=== PATIENT | female | born 1965 | race Hispanic/Latino ===

== ENCOUNTER 2017-05-11 01:14 | Emergency (ER) | payer MEDICAID, SELFPAY ==
[2017-05-11 02:54] LABS: #Basophils 0.1 thou/uL (0.0-0.2); #Eosinphils 0.1 thou/uL (0.0-0.7); #Monocytes 0.5 thou/uL (0.11-0.59); #Neutrophils 6.6 thou/uL (1.40-6.50); %Basophils 0.6 % (0.0-1.0); %Eosinophils 0.9 % (0.0-10.0); %Neutrophils 71.5 % (42.0-75.0); Hemoglobin 14.5 g/dL (12.0-16.0); Mean Corpuscular HGB CONC 34.7 g/dL (32.0-36.0); Mean Corpuscular Hemoglobin 29.3 pg (27.0-31.0); Mean Corpuscular Volume 84.5 fl (81.0-99.0); Mean Platelet Volume 6.9 fL (7.4-10.4); Platelet Count 245 thou/uL (130-400); RBC Distribution Width 11.7 % (11.5-14.5); Red Blood Cell (RBC) Count 4.94 mill/uL (4.20-5.40); White Blood Cell (WBC) Count 9.2 thou/uL (4.8-10.8)
[2017-05-11 03:01] LABS: Bilirubin Negative (Negative); Blood, Urine Trace (Negative); Clarity CLEAR (Clear); Glucose, Urine (Dipstick) >=1000 mg/dL (Negative); Leukocyte Negative (Negative); Nitrite Positive (Negative); Protein, Urine (Dipstick) 30 mg/dL (Neg-Trace); Specific Gravity, Urine 1.026 (1.002-1.036); Urobilinogen 0.2 mg/dL (0.2-1.0); pH, Urine 7.5 (5.0-9.0)
[2017-05-11] MEDS ORDERED: Acetaminophen 500 MG TAB ONE (03:08)
[2017-05-11 03:11] LABS: Amphetamine Not Detected (NotDetected); Barbiturates Screen Not Detected (NotDetected); Benzodiazepine Screen Not Detected (NotDetected); Cocaine Metabolite Screen Not Detected (NotDetected); Medtox Control Line Valid? VALID (VALID); Medtox Reader # READER 4; Methadone Not Detected (NotDetected); Methamphetamine Not Detected (NotDetected); Opiate Screen Not Detected (NotDetected); Oxycodone Screen Not Detected (NotDetected); Phencyclidine (PCP) Not Detected (NotDetected); RBC/HPF 0-3 HPF (0-3); THC/Cannabinoid Screen Not Detected (NotDetected); Tricyclic Screen Not Detected (NotDetected)
[2017-05-11] MEDS ORDERED: Ciprofloxacin 500 MG TAB ONE (03:11)
[2017-05-11 03:13] LABS: Renal Epithelial None Seen HPF (0-3); Squamous Epithelial 0-3 HPF (0-3); Transitional Epithelial NONE SEEN HPF (0-3); WBC/HPF 0-3 HPF (0-3)
[2017-05-11 03:14] LABS: CKMB 0.3 ng/mL (0-6.6); Troponin I Less than 0.010 ng/mL (< 0.028)
[2017-05-11 03:14] LABS: Bacteria/HPF None Seen HPF (None Seen); Crystals/HPF None Seen HPF (Negative); Hyaline Casts/LPF NONE SEEN LPF (0-3 Hyaline); Yeast-All Forms None Seen HPF (None Seen)
[2017-05-11 03:19] LABS: ALT (SGPT) 19 U/L (8-55); AST (SGOT) 10 U/L (5-34); Acetaminophen Less than 6.0 mcg/mL (10.0-30.0); Albumin 3.9 g/dL (3.5-5.0); Alcohol Less than 10 mg/dL (Less than 10); Alkaline Phosphatase 100 U/L (40-150); Anion Gap 13 mmol/L (10-20); BUN (Urea Nitrogen) 7 mg/dL (9.8-20.1); Bilirubin, Total 0.4 mg/dL (0.2-1.2); CK (CPK) 41 U/L (29-168); Calc. Creatinine Clearance 0 mL/min (70-130); Calcium 9.5 mg/dL (7.8-10.44); Carbon Dioxide 24 mmol/L (22-29); Chloride 101 mmol/L (98-107); Estimated GFR-MDRD 82; Globulin 3.5 g/dL (2.4-3.5); Glucose 422 mg/dL (70-105); Lipase 95 U/L (8-78); Potassium 3.5 mmol/L (3.5-5.1); Protein, Total 7.4 g/dL (6.0-8.3); Salicylate Less than 8.0 mg/dL (15.0-30.0); Sodium 134 mmol/L (136-145)
--- NOTE | 2017-05-11 07:35 | RAD ---
SINGLE VIEW OF THE CHEST: Comparison: 02-26-16 History: Altered mental status. FINDINGS: Single view of the chest shows a normal sized cardiomediastinal silhouette. There is a stable nodule projecting over the mid portion of the right thorax measuring 1.1 cm in size. There is no evidence of consolidation or pleural effusion. Surgical clips are seen at the cervicothoracic junction. IMPRESSION: Stable exam. POS: [facility]
--- NOTE | 2017-06-11 14:58 | EKG ---
Test Reason : ANXIETY Blood Pressure : / mmHG Vent. Rate : 081 BPM Atrial Rate : 081 BPM P-R Int : 152 ms QRS Dur : 070 ms QT Int : 378 ms P-R-T Axes : 056 -05 032 degrees QTc Int : 439 ms Normal sinus rhythm Septal infarct , age undetermined Abnormal ECG Confirmed by SEB GAMEZ, ORIANA ([id number]), graphic editor ARIEL SANCHEZ ([id number]) on 06/11/2017 2:57:27 PM Referred By: Confirmed By:ORIANA GRIGSBY MD
== END 2017-05-11 03:55 | disposition home or self-care (01) ==
LOC: ERS 01:14
DX: F41.9 Anxiety disorder, unspecified (principal); F32.9 Major depressive disorder, single episode, unspecified; N39.0 Urinary tract infection, site not specified; R74.8 Abnormal levels of other serum enzymes; I10 Essential (primary) hypertension; E11.9 Type 2 diabetes mellitus without complications
CPT/HCPCS: 36415; 36416; 71045; 80053; 80306; 80307; 81003; 81015; 82550; 82553; 83690; 83880; 84443; 84484; 85025; 93005

== ENCOUNTER 2018-03-20 15:52 | Emergency (ER) | payer MEDICAID, OTHER, SELFPAY ==
--- NOTE | 2018-03-20 17:46 | RAD ---
CHEST TWO VIEWS: History: Cough. Comparison: 05-11-17 FINDINGS: Well defined nodule right mid lung is similar. No pneumothorax. No effusion. Surgical clips along the right neck. There is gaseous distention of the stomach. IMPRESSION: No acute intrathoracic abnormality. POS: [facility]
== END 2018-03-20 18:00 | disposition home or self-care (01) ==
LOC: ERS 15:52
DX: J01.90 Acute sinusitis, unspecified (principal); E11.9 Type 2 diabetes mellitus without complications; Z79.4 Long term (current) use of insulin; Z79.899 Other long term (current) drug therapy
CPT/HCPCS: 71046; 87804

== ENCOUNTER 2018-03-24 23:55 | Emergency (ER) | payer OTHER ==
[2018-03-25] MEDS ORDERED: methylPREDNISolone Sod Succ/PF 125 MG/2 ML VIAL ONE (00:27)
[2018-03-25] MEDS ORDERED: Metoclopramide HCl 10 MG/2 ML VIAL ONE (00:27)
[2018-03-25] MEDS ORDERED: diphenhydrAMINE 50 MG/ML VIAL ONE (00:27)
[2018-03-25 00:34] LABS: #Basophils 0.1 thou/uL (0.0-0.2); #Eosinphils 0.1 thou/uL (0.0-0.7); #Lymphocytes 2.9 thou/uL (1.20-3.40); #Monocytes 0.4 thou/uL (0.11-0.59); #Neutrophils 3.3 thou/uL (1.40-6.50); %Basophils 1.1 % (0.0-1.0); %Eosinophils 1.7 % (0.0-10.0); %Lymphocytes 42.2 % (21.0-51.0); %Monocytes 6.2 % (0.0-10.0); %Neutrophils 48.8 % (42.0-75.0); Hemoglobin 13.8 g/dL (12.0-16.0); Mean Corpuscular HGB CONC 34.1 g/dL (32.0-36.0); Mean Corpuscular Volume 85.1 fL (78.0-98.0); Mean Platelet Volume 7.1 fL (7.4-10.4); Platelet Count 240 thou/uL (130-400); RBC Distribution Width 11.8 % (11.5-14.5); Red Blood Cell (RBC) Count 4.75 mill/uL (4.20-5.40); White Blood Cell (WBC) Count 6.8 thou/uL (4.8-10.8)
[2018-03-25 00:46] LABS: ALT (SGPT) 11 U/L (8-55); AST (SGOT) 10 U/L (5-34); Albumin 3.5 g/dL (3.5-5.0); Alkaline Phosphatase 98 U/L (40-150); Anion Gap 15 mmol/L (10-20); BUN (Urea Nitrogen) 8 mg/dL (9.8-20.1); Bilirubin, Total 0.3 mg/dL (0.2-1.2); Calc. Creatinine Clearance 0 mL/min (70-130); Calcium 9.3 mg/dL (7.8-10.44); Carbon Dioxide 22 mmol/L (22-29); Chloride 101 mmol/L (98-107); Estimated GFR-MDRD 81; Globulin 3.5 g/dL (2.4-3.5); Glucose 380 mg/dL (70-105); Potassium 3.8 mmol/L (3.5-5.1); Sodium 134 mmol/L (136-145)
--- NOTE | 2018-03-25 07:52 | RAD ---
PA AND LATERAL CHEST X-RAY: 03/25/2018 HISTORY: Cough. Difficulty breathing. COMPARISON: 03/20/2018 FINDINGS: The pulmonary nodule within the right lower lobe is again seen and is unchanged. This pulmonary nodu le is similar in size, compared to the prior exam, measuring approximately [address] thorax is available for comparison, and this would be better evaluated with CT examination. The lungs are otherwise clear. The cardiac silhouette and pulmonary vasculature are within normal limits. Surgica l clips again overly the upper mediastinum and lower right neck. No other interval change. IMPRESSION: 1. Right lower lobe pulmonary nodule, which is stable in size when compared to prior studies. 2. No acute cardiopulmonary process. POS: [facility]
== END 2018-03-25 01:34 | disposition home or self-care (01) ==
LOC: ERS 23:55
DX: J20.9 Acute bronchitis, unspecified (principal); E11.9 Type 2 diabetes mellitus without complications; F41.9 Anxiety disorder, unspecified; Z79.899 Other long term (current) drug therapy; Z79.4 Long term (current) use of insulin
CPT/HCPCS: 36415; 71046; 80053; 84484; 85025; 93005; 96365; 96375; J1200; J2765; J2930; J7620

== ENCOUNTER 2018-06-13 13:02 | Emergency (ER) | payer OTHER ==
[2018-06-13 13:51] LABS: #Basophils 0.1 thou/uL (0.0-0.2); #Eosinphils 0.1 thou/uL (0.0-0.7); #Lymphocytes 1.8 thou/uL (1.20-3.40); #Monocytes 0.4 thou/uL (0.11-0.59); #Neutrophils 5.5 thou/uL (1.40-6.50); %Basophils 0.8 % (0.0-1.0); %Eosinophils 0.8 % (0.0-10.0); %Lymphocytes 23.3 % (21.0-51.0); %Monocytes 5.1 % (0.0-10.0); Hemoglobin 14.1 g/dL (12.0-16.0); Mean Corpuscular HGB CONC 35.1 g/dL (32.0-36.0); Mean Corpuscular Hemoglobin 29.7 pg (27.0-31.0); Mean Corpuscular Volume 84.5 fL (78.0-98.0); Mean Platelet Volume 7.1 fL (7.4-10.4); Platelet Count 227 thou/uL (130-400); RBC Distribution Width 11.6 % (11.5-14.5); Red Blood Cell (RBC) Count 4.76 mill/uL (4.20-5.40); White Blood Cell (WBC) Count 7.8 thou/uL (4.8-10.8)
[2018-06-13 14:07] LABS: ALT (SGPT) 14 U/L (8-55); AST (SGOT) 12 U/L (5-34); Albumin 3.5 g/dL (3.5-5.0); Alkaline Phosphatase 94 U/L (40-150); Anion Gap 12 mmol/L (10-20); BUN (Urea Nitrogen) 11 mg/dL (9.8-20.1); Bilirubin, Total 0.3 mg/dL (0.2-1.2); Calc. Creatinine Clearance 0 mL/min (70-130); Calcium 9.2 mg/dL (7.8-10.44); Carbon Dioxide 26 mmol/L (22-29); Chloride 98 mmol/L (98-107); Estimated GFR-MDRD 86; Globulin 3.4 g/dL (2.4-3.5); Glucose 403 mg/dL (70-105); Potassium 4.2 mmol/L (3.5-5.1); Protein, Total 6.9 g/dL (6.0-8.3); Sodium 132 mmol/L (136-145)
--- NOTE | 2018-06-14 07:32 | RAD ---
Right foot 3 views: 06/13/2018 COMPARISON: None HISTORY: Joint pain, right great toe discoloration FINDINGS: No fracture or dislocation. No radiopaque foreign body or subcutaneous gas. Vascular calcif ication is seen in the midfoot. Mild enthesophyte formation noted at the origin of the plantar aponeurosis. IMPRESSION: No acute findings.
== END 2018-06-13 15:00 | disposition home or self-care (01) ==
LOC: ERS 13:02
DX: L03.031 Cellulitis of right toe (principal); L60.0 Ingrowing nail; E11.65 Type 2 diabetes mellitus with hyperglycemia; F41.9 Anxiety disorder, unspecified; F32.9 Major depressive disorder, single episode, unspecified; Z79.4 Long term (current) use of insulin; Z79.899 Other long term (current) drug therapy
CPT/HCPCS: 36415; 80053; 83605; 85025

== ENCOUNTER 2018-06-15 23:18 | Emergency (ER) | payer OTHER ==
--- NOTE | 2018-06-15 23:56 | RAD ---
XR Chest 1 View Portable History: [Chest pain] Comparison: Chest radiograph May 11, 2017 Findings: The lungs are clear. No pneumothorax or effusion. Cardiac silhouette and mediastinal contou rs are within normal limits. Thoracic inlet surgical clips are present. Impression: No acute intrathoracic abnormality.
[2018-06-16 00:05] LABS: #Basophils 0.1 thou/uL (0.0-0.2); #Eosinphils 0.1 thou/uL (0.0-0.7); #Lymphocytes 2.2 thou/uL (1.20-3.40); #Monocytes 0.6 thou/uL (0.11-0.59); #Neutrophils 4.9 thou/uL (1.40-6.50); %Basophils 0.7 % (0.0-1.0); %Eosinophils 1.2 % (0.0-10.0); %Lymphocytes 27.8 % (21.0-51.0); %Monocytes 7.7 % (0.0-10.0); %Neutrophils 62.7 % (42.0-75.0); Hemoglobin 14.2 g/dL (12.0-16.0); Mean Corpuscular HGB CONC 33.2 g/dL (32.0-36.0); Mean Corpuscular Volume 87.2 fL (78.0-98.0); Mean Platelet Volume 7.5 fL (7.4-10.4); Platelet Count 260 thou/uL (130-400); Red Blood Cell (RBC) Count 4.92 mill/uL (4.20-5.40); White Blood Cell (WBC) Count 7.8 thou/uL (4.8-10.8)
[2018-06-16] MEDS ORDERED: Bupivacaine 0.25% 10 ML VIAL ONE (00:09)
[2018-06-16 00:24] LABS: ALT (SGPT) 16 U/L (8-55); AST (SGOT) 11 U/L (5-34); Albumin 3.5 g/dL (3.5-5.0); Alkaline Phosphatase 119 U/L (40-150); Anion Gap 14 mmol/L (10-20); BUN (Urea Nitrogen) 8 mg/dL (9.8-20.1); Bilirubin, Total 0.3 mg/dL (0.2-1.2); CK (CPK) 45 U/L (29-168); Calc. Creatinine Clearance 0 mL/min (70-130); Calcium 8.9 mg/dL (7.8-10.44); Carbon Dioxide 24 mmol/L (22-29); Chloride 101 mmol/L (98-107); Estimated GFR-MDRD 74; Glucose 539 mg/dL (70-105); Lipase 82 U/L (8-78); Potassium 4.3 mmol/L (3.5-5.1); Protein, Total 6.5 g/dL (6.0-8.3); Sodium 135 mmol/L (136-145)
--- NOTE | 2018-06-16 07:21 | CT ---
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 PT says it feels like there is something caught in her chest. PT denies cough, diaphoresis, SOB, radiation of pain, fever, congestion, eating anything that could have gotten stuck, or HX of FEDERICO D. TECHNIQUE: Imaging protocol: Axial computed tomographic angiography images of the chest with intravenous contrast using CT angiography protocol. 3D rendering: MIP reconstructed images were created and reviewed. COMPARISON: No relevant prior studies available. FINDINGS: Pulmonary arteries: No pulmonary emboli. Aorta: No aortic aneurysm. No aortic dissection. Lungs: 11 mm oval, noncalcified nodule, right lower lobe. No infiltrate or edema. Pleural space: No pneumothorax. No pleural effusion. Heart: No cardiomegaly. No pericardial effusion. Lymph nodes: Unremarkable. No enlarged lymph nodes. Bones/joints: Chronic degenerative spinal changes without acute fracture or dislocation. Soft tissues: Questionable 16 mm nodule left thyroid lobe vs artifact from shadowing produced by adjacent clip. IMPRESSION: No pulmonary emboli. No infiltrate or edema. 11 mm oval, noncalcified nodule, right lower lobe. No infiltrate or edema. For both low risk and high risk patients, consider CT at 3 months, PET/CT or biopsy. (Brayan et al., Fleischner Society, 2017) Thank you for allowing us to participate in the care of your patient. Dictated and Authenticated by: Zaid Parish MD 06/16/2018 1:24 AM Central Time ([place] & [place]) FINAL REPORT: CT ARTERIOGRAM CHEST WITH IV CONTRAST AND 3D MIP IMAGING Date: 06-16-18 Time: 0047 HISTORY: Chest pain. Elevated d-dimer. FINDINGS: I agree with the preliminary report by Dr. Parish from [facility]. No CT evidence of pulmona ry embolus. Bovine origin of the great vessels at the aortic arch. Noncalcified 11 mm nodule within the left lower lobe. Please consider pulmonary medicine evaluation and radionucleotide PET scan. Small nonspecific low-density lesion within the partially visualized left thyroid lobe on the superio rmost image. Code QA Transcribed Date/Time: 06/16/2018 8:16 AM
== END 2018-06-16 01:55 | disposition home or self-care (01) ==
LOC: ERS 23:18
DX: L60.0 Ingrowing nail (principal); R07.89 Other chest pain; F41.9 Anxiety disorder, unspecified; F32.9 Major depressive disorder, single episode, unspecified; E11.9 Type 2 diabetes mellitus without complications; Z79.899 Other long term (current) drug therapy; Z79.4 Long term (current) use of insulin; Z79.891 Long term (current) use of opiate analgesic
CPT/HCPCS: 11750; 36415; 71045; 71275; 80053; 82550; 83690; 84484; 85025; 85379; 93005; 96360; S0020

== ENCOUNTER 2018-10-06 13:12 | Outpatient (CLI) | payer OTHER ==
--- NOTE | 2018-10-06 13:44 | MMO ---
Bilateral MAMMO Bilat Screen [facility]. CLINICAL HISTORY: Patient is 52 years old and is seen for screening. The patient has the following family history of breast cancer: paternal aunt. The patient has no personal history of cancer. VIEWS: The views performed were: bilateral craniocaudal and bilateral mediolateral oblique. This study has been interpreted with the assistance of computer-aided detection. MAMMOGRAM FINDINGS: There are scattered fibroglandular densities. There are no suspicious masses, suspicious calcifications, or new areas of architectural distortion. IMPRESSION: THERE IS NO MAMMOGRAPHIC EVIDENCE OF MALIGNANCY. A ROUTINE FOLLOW-UP MAMMOGRAM IN 1 YEAR IS RECOMMENDED. ACR BI-RADS Category 1 - Negative MAMMOGRAPHY NOTE: 1. A negative mammogram report should not delay a biopsy if a dominant of clinically suspicious mass is present. 2. Approximately 10% to 15% of breast cancers are not detected by mammography. 3. Adenosis and dense breasts may obscure an underlying neoplasm. Reported by: OZZIE WYNN MD Electonically Signed: [id number]
== END 2018-10-06 13:13 | disposition home or self-care (01) ==
LOC: BICMAMMO 13:12
PROVIDERS: ATTEND Internal Medicine
DX: Z12.31 Encounter for screening mammogram for malignant neoplasm of breast (principal); Z80.3 Family history of malignant neoplasm of breast
CPT/HCPCS: 77067

== ENCOUNTER 2018-12-27 02:59 | Emergency (ER) | payer OTHER, SELFPAY ==
[2018-12-27] MEDS ORDERED: Promethazine HCl 25 MG/ML VIAL ONE (03:19)
[2018-12-27 03:44] LABS: #Eosinphils 0.1 thou/uL (0.0-0.7); #Lymphocytes 2.5 thou/uL (1.20-3.40); #Monocytes 0.4 thou/uL (0.11-0.59); #Neutrophils 3.6 thou/uL (1.40-6.50); %Basophils 0.7 % (0.0-1.0); %Eosinophils 1.1 % (0.0-10.0); %Lymphocytes 37.2 % (21.0-51.0); %Monocytes 6.2 % (0.0-10.0); %Neutrophils 54.9 % (42.0-75.0); Hemoglobin 14.4 g/dL (12.0-16.0); Mean Corpuscular HGB CONC 35.4 g/dL (32.0-36.0); Mean Corpuscular Hemoglobin 29.5 pg (27.0-31.0); Mean Corpuscular Volume 83.3 fL (78.0-98.0); Mean Platelet Volume 7.3 fL (7.4-10.4); Platelet Count 231 thou/uL (130-400); RBC Distribution Width 11.6 % (11.5-14.5); Red Blood Cell (RBC) Count 4.88 mill/uL (4.20-5.40); White Blood Cell (WBC) Count 6.6 thou/uL (4.8-10.8)
[2018-12-27 04:02] LABS: ALT (SGPT) 18 U/L (8-55); AST (SGOT) 11 U/L (5-34); Albumin 3.3 g/dL (3.5-5.0); Alkaline Phosphatase 96 U/L (40-110); Anion Gap 16 mmol/L (10-20); BUN (Urea Nitrogen) 10 mg/dL (9.8-20.1); Bilirubin, Total 0.4 mg/dL (0.2-1.2); Calc. Creatinine Clearance 0 mL/min (70-130); Calcium 9.1 mg/dL (7.8-10.44); Carbon Dioxide 21 mmol/L (22-29); Chloride 101 mmol/L (98-107); Estimated GFR-MDRD 82; Globulin 3.3 g/dL (2.4-3.5); Glucose 387 mg/dL (70-105); Potassium 3.8 mmol/L (3.5-5.1); Protein, Total 6.6 g/dL (6.0-8.3); Sodium 134 mmol/L (136-145)
--- NOTE | 2018-12-27 08:11 | CT ---
PRELIMINARY REPORT/[facility]/EMERGENCY AFTER HOURS PROCEDURE: PROCEDURE INFORMATION: Exam: CT Head Without Contrast Exam date and time: 12/27/2018 3:31 AM Clinical history: 53 years old, female; Dizziness; Patient HX: Er 5. Patient reports waking up from s leep and feeling dizzy and uncoordinated TECHNIQUE: Imaging protocol: Computed tomography of the head without contrast. COMPARISON: No relevant prior studies available. FINDINGS: Brain: Normal. No hemorrhage. Unremarkable white matter. No mass effect. Ventricles: Normal. No ventriculomegaly. Bones/joints: Unremarkable. No acute fracture. Sinuses: Visualized sinuses are unremarkable. No fluid levels. Mastoid air cells: Visualized mastoid air cells are well aerated. Soft tissues: Unremarkable. IMPRESSION: No acute intracranial abnormality. Thank you for allowing us to participate in the care of your patient. Dictated and Authenticated by: Luis Enrique Palomino MD 12/27/2018 3:37 AM Central Time ([place] & [place]) FINAL REPORT HEAD CT WITHOUT CONTRAST: HISTORY: Patient waking up from sleep and feeling dizzy. Uncoordinated. COMPARISON: 11/24/15. FINDINGS/IMPRESSION: This report is in agreement with the preliminary report by [facility]. No acute intracranial process. POS: [facility]
== END 2018-12-27 04:30 | disposition home or self-care (01) ==
LOC: ERS 02:59
DX: R42 Dizziness and giddiness (principal); R51 Headache; E11.9 Type 2 diabetes mellitus without complications; F41.9 Anxiety disorder, unspecified; F32.9 Major depressive disorder, single episode, unspecified; Z79.899 Other long term (current) drug therapy
CPT/HCPCS: 36416; 70450; 80053; 84484; 85025; 93005; 96365; J2550

== ENCOUNTER 2019-02-05 22:36 | Emergency (ER) | payer SELFPAY | END 2019-02-05 23:00 | disposition left against medical advice (07) | LOC: ERS 22:36 | DX: Z53.21 Procedure and treatment not carried out due to patient leaving prior to being seen by health care provider (principal) ==

== ENCOUNTER 2019-08-30 03:18 | Emergency (ER) | payer SELFPAY ==
[2019-08-30 03:58] LABS: #Eosinphils 0.2 thou/uL (0.0-0.7); #Lymphocytes 2.1 thou/uL (1.20-3.40); #Monocytes 0.4 thou/uL (0.11-0.59); #Neutrophils 3.9 thou/uL (1.40-6.50); %Basophils 0.4 % (0.0-1.0); %Eosinophils 2.3 % (0.0-10.0); %Lymphocytes 31.5 % (21.0-51.0); %Monocytes 6.6 % (0.0-10.0); %Neutrophils 59.2 % (42.0-75.0); Hemoglobin 14.1 g/dL (12.0-16.0); Mean Corpuscular Hemoglobin 28.3 pg (27.0-31.0); Mean Corpuscular Volume 85.7 fL (78.0-98.0); Platelet Count 271 thou/uL (130-400); RBC Distribution Width 11.8 % (11.5-14.5); Red Blood Cell (RBC) Count 4.98 mill/uL (4.20-5.40); White Blood Cell (WBC) Count 6.6 thou/uL (4.8-10.8)
[2019-08-30 04:14] LABS: Bicarbonate (HCO3v) 25.4 mmol/L (22.0-28.0); CO2 Tension (PvCO2) 43.6 mmHg (40.0-50.0); Calcium, Ionized 1.18 mmol/L (See Comments:); Chloride 100 mmol/L (98-107); Hemoglobin - Calc 13.5 g/dL (12.0-16.0); Potassium 4.2 mmol/L (3.5-5.1); Sodium 135 mmol/L (138-145); T. Carbon Dioxide 26.8 mmol/L (22.0-28.0); vO2 Saturation-calc 88.8 % (60.0-85.0)
[2019-08-30 04:20] LABS: ALT (SGPT) 14 U/L (8-55); AST (SGOT) 11 U/L (5-34); Albumin 3.1 g/dL (3.5-5.0); Alkaline Phosphatase 108 U/L (40-110); Anion Gap 13 mmol/L (10-20); BUN (Urea Nitrogen) 15 mg/dL (9.8-20.1); Bilirubin, Total 0.3 mg/dL (0.2-1.2); Calc. Creatinine Clearance 0 mL/min (70-130); Carbon Dioxide 23 mmol/L (22-29); Chloride 99 mmol/L (98-107); Estimated GFR-MDRD 64; Globulin 3.4 g/dL (2.4-3.5); Potassium 4.1 mmol/L (3.5-5.1); Protein, Total 6.5 g/dL (6.0-8.3); Sodium 131 mmol/L (136-145)
[2019-08-30] MEDS ORDERED: Acetaminophen 500 MG TAB ONE (04:27)
[2019-08-30 04:29] LABS: Glucose 668 mg/dL (70-105)
[2019-08-30 04:43] LABS: Bacteria/HPF 1+ HPF (None Seen); Bilirubin Negative (Negative); Blood, Urine 1+ (Negative); Clarity Clear (Clear); Glucose, Urine (Dipstick) Greater than 1000 mg/dL (Negative); Ketone, Urine Negative (Negative); Leukocyte Negative Leu/uL (Negative); Nitrite 1+ (Negative); Protein, Urine (Dipstick) 100 mg/dL (Neg-Trace); Specific Gravity, Urine 1.025 (1.002-1.036); Squamous Epithelial 0-3 HPF (0-3); Urobilinogen Normal mg/dL (Less than 2)
[2019-08-30] MEDS ORDERED: Insulin Regular 300 UNITS/3 ML VIAL ONE (04:44)
--- NOTE | 2019-08-30 07:50 | RAD ---
EXAM: Single view of the chest HISTORY: Dizziness and difficulty catching breath COMPARISON: 06/15/2018 FINDINGS: Single view of the chest shows a normal sized cardiomediastinal silhouette. There is no shaylee dence of consolidation, mass, or pleural effusion. The bones are unremarkable. Surgical clips are seen at the cervicothoracic junction. IMPRESSION: No evidence of acute cardiopulmonary disease
== END 2019-08-30 05:44 | disposition home or self-care (01) ==
LOC: ERS 03:18
DX: E11.65 Type 2 diabetes mellitus with hyperglycemia (principal); R42 Dizziness and giddiness; F41.9 Anxiety disorder, unspecified; F32.9 Major depressive disorder, single episode, unspecified
CPT/HCPCS: 36416; 71045; 80053; 81003; 81015; 82330; 82803; 84484; 85025; 93005; 96361; 96374; J1815

== ENCOUNTER 2020-01-23 19:42 | Emergency (ER) | payer SELFPAY ==
[2020-01-23 20:40] LABS: #Eosinphils 0.1 thou/uL (0.0-0.7); #Lymphocytes 1.9 thou/uL (1.20-3.40); #Monocytes 0.5 thou/uL (0.11-0.59); #Neutrophils 5.4 thou/uL (1.40-6.50); %Basophils 0.5 % (0.0-1.0); %Eosinophils 1.7 % (0.0-10.0); %Lymphocytes 23.5 % (21.0-51.0); %Monocytes 5.9 % (0.0-10.0); %Neutrophils 68.4 % (42.0-75.0); Hemoglobin 15.1 g/dL (12.0-16.0); Mean Corpuscular HGB CONC 34.2 g/dL (32.0-36.0); Mean Corpuscular Volume 84.8 fL (78.0-98.0); Mean Platelet Volume 7.4 fL (7.4-10.4); Platelet Count 275 thou/uL (130-400); RBC Distribution Width 11.7 % (11.5-14.5); Red Blood Cell (RBC) Count 5.23 mill/uL (4.20-5.40); White Blood Cell (WBC) Count 7.9 thou/uL (4.8-10.8)
--- NOTE | 2020-01-23 20:53 | RAD ---
Exam: Chest one view HISTORY:Shortness of breath Comparison: 08/30/2019 FINDINGS: Cardiac silhouette: Normal Aorta: Unremarkable Pulmonary vessels: Normal Costophrenic angles: Clear LUNGS: No masses or consolidation. Pneumothorax: None Osseous abnormalities: None IMPRESSION: No acute cardiopulmonary process.
[2020-01-23 21:04] LABS: ALT (SGPT) 14 U/L (8-55); AST (SGOT) 11 U/L (5-34); Alkaline Phosphatase 89 U/L (40-110); Anion Gap 17 mmol/L (10-20); BUN (Urea Nitrogen) 14 mg/dL (9.8-20.1); Bilirubin, Total 0.2 mg/dL (0.2-1.2); CK (CPK) 74 U/L (29-168); Calc. Creatinine Clearance 0 mL/min (70-130); Calcium 8.6 mg/dL (7.8-10.44); Carbon Dioxide 23 mmol/L (22-29); Chloride 99 mmol/L (98-107); Glucose 498 mg/dL (70-105); Lipase 89 U/L (8-78); Potassium 3.9 mmol/L (3.5-5.1); Sodium 135 mmol/L (136-145)
[2020-01-23 21:17] LABS: Bilirubin Negative (Negative); Blood, Urine Trace (Negative); Clarity Clear (Clear); Glucose, Urine (Dipstick) Greater than 1000 mg/dL (Negative); Ketone, Urine Negative (Negative); Leukocyte Negative Leu/uL (Negative); Nitrite 1+ (Negative); Protein, Urine (Dipstick) 300 mg/dL (Neg-Trace); Renal Epithelial 0-3 HPF (None Seen); Specific Gravity, Urine 1.038 (1.002-1.036); Urobilinogen Normal mg/dL (Less than 2); Yeast-Budding 1+ HPF (None Seen); pH, Urine 6.5 (5.0-9.0)
[2020-01-23 21:21] LABS: Bacteria/HPF 3+ HPF (None Seen); RBC/HPF 0-3 HPF (0-3)
[2020-01-23] MEDS ORDERED: Acetaminophen 325 MG TAB ONE (22:10)
[2020-01-23] MEDS ORDERED: Lorazepam 2 MG/ML VIAL ONE (22:10)
[2020-01-23] MEDS ORDERED: Insulin Regular 300 UNITS/3 ML VIAL ONE (22:24)
[2020-01-23] MEDS ORDERED: cefTRIAXone\\ROCEPHIN 1 GM VIAL ONE (22:24)
--- NOTE | 2020-01-27 14:42 | EKG ---
Test Reason : Blood Pressure : / mmHG Vent. Rate : 099 BPM Atrial Rate : 099 BPM P-R Int : 150 ms QRS Dur : 066 ms QT Int : 356 ms P-R-T Axes : 042 003 031 degrees QTc Int : 456 ms Normal sinus rhythm Septal infarct , age undetermined Abnormal ECG Confirmed by SHERITA DICKSON ([id number]), editor in chief ZBIGNIEW MIDDLETON ([id number]) on 01/27/2020 2:42:16 PM Referred By: Confirmed By:SHERITA DICKSON
--- NOTE | 2020-01-27 14:42 | EKG ---
Test Reason : Blood Pressure : / mmHG Vent. Rate : 111 BPM Atrial Rate : 111 BPM P-R Int : 150 ms QRS Dur : 064 ms QT Int : 332 ms P-R-T Axes : 041 -16 028 degrees QTc Int : 451 ms Sinus tachycardia Minimal voltage criteria for LVH, may be normal variant Borderline ECG Confirmed by SHERITA DICKSON ([id number]), business editor ZBIGNIEW MIDDLETON ([id number]) on 01/27/2020 2:42:04 PM Referred By: Confirmed By:SHERITA DICKSON
== END 2020-01-24 00:15 | disposition home or self-care (01) ==
LOC: ERS 19:42
DX: N39.0 Urinary tract infection, site not specified (principal); E11.65 Type 2 diabetes mellitus with hyperglycemia; R06.02 Shortness of breath; R07.89 Other chest pain; F17.210 Nicotine dependence, cigarettes, uncomplicated; Z79.84 Long term (current) use of oral hypoglycemic drugs
CPT/HCPCS: 36415; 36416; 71045; 80053; 81003; 81015; 82550; 83690; 84484; 85025; 85379; 93005; 96365; 96375; J0696; J1815; J2060

== ENCOUNTER 2020-01-30 00:27 | Emergency (ER) | payer SELFPAY ==
[2020-01-30 01:30] LABS: Base Excess-Venous 0.5 mmol/L (-2.0 to 3.0); Bicarbonate (HCO3v) 25.3 mmol/L (22.0-28.0); CO2 Tension (PvCO2) 40.4 mmHg (40.0-50.0); Calcium, Ionized 1.12 mmol/L (1.15-1.33); Chloride 106 mmol/L (98-107); Hemoglobin - Calc 13.8 g/dL (12.0-16.0); Potassium 3.5 mmol/L (3.5-5.1); Sodium 140 mmol/L (138-145); T. Carbon Dioxide 26.6 mmol/L (22.0-28.0); vO2 Saturation-calc 86.9 % (60.0-85.0)
[2020-01-30] MEDS ORDERED: Lorazepam 2 MG/ML VIAL ONE (01:32)
[2020-01-30] MEDS ORDERED: Meclizine HCl 25 MG TAB ONE (01:32)
[2020-01-30 01:41] LABS: #Eosinphils 0.1 thou/uL (0.0-0.7); #Lymphocytes 2.5 thou/uL (1.20-3.40); #Monocytes 0.6 thou/uL (0.11-0.59); #Neutrophils 4.5 thou/uL (1.40-6.50); %Basophils 0.6 % (0.0-1.0); %Eosinophils 1.9 % (0.0-10.0); %Lymphocytes 32.1 % (21.0-51.0); %Monocytes 8.1 % (0.0-10.0); %Neutrophils 57.4 % (42.0-75.0); Mean Corpuscular HGB CONC 35.3 g/dL (32.0-36.0); Mean Corpuscular Hemoglobin 30.4 pg (27.0-31.0); Mean Platelet Volume 7.5 fL (7.4-10.4); Platelet Count 263 thou/uL (130-400); RBC Distribution Width 11.7 % (11.5-14.5); White Blood Cell (WBC) Count 7.8 thou/uL (4.8-10.8)
[2020-01-30 01:44] LABS: Bacteria/HPF None Seen HPF (None Seen); Bilirubin Negative (Negative); Blood, Urine 1+ (Negative); Clarity Clear (Clear); Glucose, Urine (Dipstick) Greater than 1000 mg/dL (Negative); Ketone, Urine Negative (Negative); Leukocyte Negative Leu/uL (Negative); Nitrite Negative (Negative); Protein, Urine (Dipstick) 600 mg/dL (Neg-Trace); RBC/HPF 0-3 HPF (0-3); Specific Gravity, Urine 1.037 (1.002-1.036); Urobilinogen Normal mg/dL (Less than 2); WBC/HPF 0-3 HPF (0-3); pH, Urine 6.5 (5.0-9.0)
[2020-01-30 01:47] LABS: Amphetamine Not Detected (NotDetected); Barbiturates Screen Not Detected (NotDetected); Benzodiazepine Screen Not Detected (NotDetected); Cocaine Metabolite Screen Not Detected (NotDetected); Medtox Control Line Valid? VALID (VALID); Medtox Reader # READER 4; Methadone Not Detected (NotDetected); Methamphetamine Not Detected (NotDetected); Opiate Screen Not Detected (NotDetected); Oxycodone Screen Not Detected (NotDetected); Phencyclidine (PCP) Not Detected (NotDetected); THC/Cannabinoid Screen Not Detected (NotDetected); Tricyclic Screen Not Detected (NotDetected)
[2020-01-30 01:59] LABS: ALT (SGPT) 11 U/L (8-55); AST (SGOT) 10 U/L (5-34); Acetaminophen Less than 6.0 mcg/mL (10.0-30.0); Albumin 2.8 g/dL (3.5-5.0); Alcohol Less than 10 mg/dL (Less than 10); Alkaline Phosphatase 80 U/L (40-110); Anion Gap 14 mmol/L (10-20); BUN (Urea Nitrogen) 19 mg/dL (9.8-20.1); Bilirubin, Total 0.2 mg/dL (0.2-1.2); CK (CPK) 43 U/L (29-168); Calc. Creatinine Clearance 0 mL/min (70-130); Calcium 8.6 mg/dL (7.8-10.44); Carbon Dioxide 24 mmol/L (22-29); Chloride 104 mmol/L (98-107); Globulin 3.3 g/dL (2.4-3.5); Glucose 214 mg/dL (70-105); Potassium 3.5 mmol/L (3.5-5.1); Protein, Total 6.1 g/dL (6.0-8.3); Salicylate Less than 8.0 mg/dL (15.0-30.0); Sodium 138 mmol/L (136-145)
--- NOTE | 2020-01-30 07:22 | CT ---
PRELIMINARY REPORT/[facility]/EMERGENCY AFTER HOURS PROCEDURE EXAM: CT Head Without Intravenous Contrast. CLINICAL HISTORY: 54-year-old female presenting from home with dizziness and altered mental status. TECHNIQUE: Axial computed tomography images of the head/brain without intravenous contrast. COMPARISON: None provided. FINDINGS: BRAIN: No acute intraparenchymal hemorrhage. No mass lesion. No CT evidence for acute territorial infarct. N o midline shift or extra-axial collection. VENTRICLES: No hydrocephalus. ORBITS: The orbits are unremarkable. SINUSES AND MASTOIDS: The paranasal sinuses and mastoid air cells are clear. SOFT TISSUES: No significant facial or scalp soft tissue swelling evident. No radiopaque foreign body is seen. BONES: No acute skull fracture. MISCELLANEOUS: Partial motion artifact. IMPRESSION: No acute intracranial hemorrhage. ELECTRONICALLY SIGNED BY: Jamie Gutierrez MD Jan 30, 2020 2:23:01 AM CLIPPING MARKER This report is intended for review by the ordering physician only, in accordance of law. If you recei ve this report in error, please call [facility] at [phone]. FINAL REPORT Final interpretation Head CT without contrast: 01/30/2020 comparison 12/27/2018 HISTORY: Altered mental status, dizziness FINDINGS: I agree with the preliminary report. No intracranial hemorrhage, midline shift, mass effect , or ventricular enlargement. Imaged paranasal sinuses and mastoid air cells appear unremarkable. No acute osseous abnormality. IMPRESSION: No acute findings. Code QA Transcribed Date/Time: 01/30/2020 8:36 AM
--- NOTE | 2020-01-30 08:03 | RAD ---
RADIOGRAPH CHEST 1 VIEW: DATE: 01/30/2020 HISTORY: 54-year-old female with altered mental status. Concern for aspiration. FINDINGS: There are no airspace densities, pulmonary edema, pneumothorax, or cardiomegaly. The lateral costophr enic angles are sharp. Cluster of surgical clips at right upper mediastinum. IMPRESSION: No acute cardiopulmonary findings.
== END 2020-01-30 03:22 | disposition home or self-care (01) ==
LOC: ERS 00:27
DX: T50.901A Poisoning by unspecified drugs, medicaments and biological substances, accidental (unintentional), initial encounter (principal); R41.82 Altered mental status, unspecified; Z79.899 Other long term (current) drug therapy; Z79.84 Long term (current) use of oral hypoglycemic drugs; E11.9 Type 2 diabetes mellitus without complications; Z87.891 Personal history of nicotine dependence
CPT/HCPCS: 36416; 70450; 71045; 80053; 80306; 80307; 81003; 81015; 82330; 82550; 82803; 83735; 84443; 84484; 85025; 93005; 96374; J2060

== ENCOUNTER 2020-05-02 14:59 | Emergency (ER) | payer OTHER, SELFPAY ==
[2020-05-02 16:52] LABS: #Eosinphils 0.1 thou/uL (0.0-0.7); #Monocytes 0.5 thou/uL (0.11-0.59); #Neutrophils 5.4 thou/uL (1.40-6.50); %Basophils 0.5 % (0.0-1.0); %Eosinophils 1.2 % (0.0-10.0); %Lymphocytes 24.8 % (21.0-51.0); %Neutrophils 67.4 % (42.0-75.0); Hemoglobin 14.9 g/dL (12.0-16.0); Mean Corpuscular HGB CONC 34.9 g/dL (32.0-36.0); Mean Corpuscular Hemoglobin 29.9 pg (27.0-31.0); Mean Corpuscular Volume 85.7 fL (78.0-98.0); Mean Platelet Volume 7.1 fL (7.4-10.4); Platelet Count 286 thou/uL (130-400); Red Blood Cell (RBC) Count 4.98 mill/uL (4.20-5.40); White Blood Cell (WBC) Count 8.1 thou/uL (4.8-10.8)
[2020-05-02 17:16] LABS: ALT (SGPT) 11 U/L (8-55); AST (SGOT) 13 U/L (5-34); Albumin 2.9 g/dL (3.5-5.0); Alkaline Phosphatase 69 U/L (40-110); Anion Gap 12 mmol/L (10-20); BUN (Urea Nitrogen) 14 mg/dL (9.8-20.1); Bilirubin, Total 0.2 mg/dL (0.2-1.2); Calc. Creatinine Clearance 0 mL/min (70-130); Calcium 8.7 mg/dL (7.8-10.44); Carbon Dioxide 21 mmol/L (22-29); Chloride 106 mmol/L (98-107); Globulin 3.4 g/dL (2.4-3.5); Glucose 150 mg/dL (70-105); Protein, Total 6.3 g/dL (6.0-8.3); Sodium 135 mmol/L (136-145)
[2020-05-02] MEDS ORDERED: diphenhydrAMINE 50 MG/ML VIAL ONE (18:09)
[2020-05-02] MEDS ORDERED: Metoclopramide HCl 10 MG/2 ML VIAL ONE (18:09)
[2020-05-02] MEDS ORDERED: Acetaminophen 500 MG TAB ONE (18:09)
[2020-05-02 19:52] LABS: Bacteria/HPF 2+ HPF (None Seen); Bilirubin Negative (Negative); Blood, Urine Trace (Negative); Clarity Clear (Clear); Glucose, Urine (Dipstick) Greater than 1000 mg/dL (Negative); Ketone, Urine Negative (Negative); Leukocyte Negative Leu/uL (Negative); Nitrite Negative (Negative); Protein, Urine (Dipstick) 600 mg/dL (Neg-Trace); RBC/HPF 0-3 HPF (0-3); Specific Gravity, Urine 1.027 (1.002-1.036); Urobilinogen Normal mg/dL (Less than 2)
[2020-05-03 04:30] LABS: SARS-CoV-2 PCR by NAA Not Detected (NotDetected)
== END 2020-05-02 19:44 | disposition home or self-care (01) ==
LOC: ERS 14:59
DX: J06.9 Acute upper respiratory infection, unspecified (principal); E11.9 Type 2 diabetes mellitus without complications; Z87.891 Personal history of nicotine dependence; Z20.822 Contact with and (suspected) exposure to COVID-19; Z79.84 Long term (current) use of oral hypoglycemic drugs; Z79.899 Other long term (current) drug therapy
CPT/HCPCS: 36415; 71045; 80053; 81003; 81015; 83605; 85025; 87635; 96365; 96375; J1200; J2765; U0003; U0005

== ENCOUNTER 2020-06-30 03:17 | Emergency (ER) | payer SELFPAY ==
[2020-06-30] MEDS ORDERED: Ondansetron PF 4 MG/2 ML Vial ONE (03:48)
[2020-06-30] MEDS ORDERED: Acetaminophen 500 MG TAB ONE (03:48)
[2020-06-30] MEDS ORDERED: cefTRIAXone\\ROCEPHIN 2 GM VIAL ONE (03:48)
[2020-06-30] MEDS ORDERED: cefTRIAXone\\ROCEPHIN 1 GM VIAL ONE (03:49)
[2020-06-30 04:22] LABS: #Lymphocytes 1.2 thou/uL (1.20-3.40); #Monocytes 0.7 thou/uL (0.11-0.59); #Neutrophils 3.8 thou/uL (1.40-6.50); %Eosinophils 0.4 % (0.0-10.0); %Lymphocytes 20.9 % (21.0-51.0); %Monocytes 12.3 % (0.0-10.0); %Neutrophils 66.3 % (42.0-75.0); Mean Corpuscular HGB CONC 34.3 g/dL (32.0-36.0); Mean Corpuscular Hemoglobin 29.9 pg (27.0-31.0); Mean Corpuscular Volume 87.2 fL (78.0-98.0); Mean Platelet Volume 7.8 fL (7.4-10.4); Platelet Count 197 thou/uL (130-400); Red Blood Cell (RBC) Count 4.69 mill/uL (4.20-5.40); White Blood Cell (WBC) Count 5.8 thou/uL (4.8-10.8)
[2020-06-30 04:40] LABS: ALT (SGPT) 11 U/L (8-55); AST (SGOT) 15 U/L (5-34); Albumin 2.4 g/dL (3.5-5.0); Alkaline Phosphatase 64 U/L (40-110); Anion Gap 14 mmol/L (10-20); BUN (Urea Nitrogen) 12 mg/dL (9.8-20.1); Bilirubin, Total 0.2 mg/dL (0.2-1.2); Calc. Creatinine Clearance 0 mL/min (70-130); Calcium 7.9 mg/dL (7.8-10.44); Carbon Dioxide 24 mmol/L (22-29); Chloride 102 mmol/L (98-107); Globulin 3.3 g/dL (2.4-3.5); Glucose 375 mg/dL (70-105); Potassium 3.5 mmol/L (3.5-5.1); Protein, Total 5.7 g/dL (6.0-8.3); Sodium 136 mmol/L (136-145)
[2020-06-30 05:04] LABS: Bacteria/HPF None Seen HPF (None Seen); Bilirubin Negative (Negative); Blood, Urine 2+ (Negative); Clarity Clear (Clear); Glucose, Urine (Dipstick) Greater than 1000 mg/dL (Negative); Ketone, Urine Trace mg/dL (Negative); Leukocyte Negative Leu/uL (Negative); Nitrite Negative (Negative); Protein, Urine (Dipstick) 600 mg/dL (Neg-Trace); RBC/HPF 21-50 HPF (0-3); Squamous Epithelial 0-3 HPF (0-3); Urobilinogen Normal mg/dL (Less than 2); WBC/HPF 21-50 HPF (0-3)
== END 2020-06-30 05:38 | disposition home or self-care (01) ==
LOC: ERS 03:17
DX: N39.0 Urinary tract infection, site not specified (principal); B34.9 Viral infection, unspecified; E11.9 Type 2 diabetes mellitus without complications
CPT/HCPCS: 36415; 71045; 80053; 81003; 83605; 85025; 87040; 87086; 96365; 96375; J0696; J2405

== ENCOUNTER 2020-07-06 18:41 | Observation (INO) | payer SELFPAY ==
[2020-07-06 19:25] LABS: #Lymphocytes 2.5 thou/uL (1.20-3.40); #Monocytes 0.4 thou/uL (0.11-0.59); #Neutrophils 3.5 thou/uL (1.40-6.50); %Basophils 0.2 % (0.0-1.0); %Eosinophils 0.2 % (0.0-10.0); %Lymphocytes 38.4 % (21.0-51.0); %Monocytes 6.6 % (0.0-10.0); %Neutrophils 54.6 % (42.0-75.0); Hemoglobin 13.6 g/dL (12.0-16.0); Mean Corpuscular HGB CONC 33.1 g/dL (32.0-36.0); Mean Corpuscular Hemoglobin 28.3 pg (27.0-31.0); Mean Corpuscular Volume 85.6 fL (78.0-98.0); Platelet Count 235 thou/uL (130-400); White Blood Cell (WBC) Count 6.4 thou/uL (4.8-10.8)
[2020-07-06 19:48] LABS: ALT (SGPT) 11 U/L (8-55); AST (SGOT) 23 U/L (5-34); Albumin 2.2 g/dL (3.5-5.0); Alkaline Phosphatase 49 U/L (40-110); Anion Gap 13 mmol/L (10-20); BUN (Urea Nitrogen) 19 mg/dL (9.8-20.1); Bilirubin, Total 0.2 mg/dL (0.2-1.2); Calc. Creatinine Clearance 0 mL/min (70-130); Calcium 7.5 mg/dL (7.8-10.44); Carbon Dioxide 22 mmol/L (22-29); Chloride 107 mmol/L (98-107); Globulin 3.4 g/dL (2.4-3.5); Glucose 148 mg/dL (70-105); Lipase 63 U/L (8-78); Potassium 3.3 mmol/L (3.5-5.1); Protein, Total 5.6 g/dL (6.0-8.3); Sodium 139 mmol/L (136-145)
[2020-07-06] MEDS ORDERED: Ondansetron ODT 4 MG TAB ONE (19:57)
[2020-07-06] MEDS ORDERED: Aspirin Chewable 81 MG TAB ONE ×2 (19:57→19:58)
[2020-07-06] MEDS ORDERED: Dexamethasone 10 MG/ML VIAL ONE (19:57)
[2020-07-06] MEDS ORDERED: Acetaminophen 325 MG TAB PO PRN (22:15)
[2020-07-06] MEDS ORDERED: Ondansetron PF 4 MG/2 ML Vial IVP PRN (22:15)
[2020-07-06] MEDS ORDERED: Sodium Chloride 0.9% 1,000 ML IV SCH (22:15)
[2020-07-06] MEDS ORDERED: Ondansetron ODT 4 MG TAB SL PRN (22:15)
[2020-07-06 22:51] VITALS: BMI 29.5
[2020-07-07] MEDS ORDERED: Ondansetron PF 4 MG/2 ML Vial IVP PRN (00:25)
[2020-07-07] MEDS ORDERED: Loperamide HCl 2 MG CAP PO PRN (00:25)
[2020-07-07] MEDS ORDERED: HumaLOG 300 UNITS/3 ML VIAL SC PRN ×2 (00:28)
[2020-07-07] MEDS ORDERED: Dextrose 5% in Water 1,000 ML IV PRN (00:28)
[2020-07-07] MEDS ORDERED: Dextrose 50% Abboject 50 ML SYRINGE SLOW IVP PRN (00:28)
[2020-07-07] MEDS ORDERED: Potassium Chloride 20 MEQ TAB PO SCH (00:45)
[2020-07-07] MEDS: guaiFENesin/DM ER PO PRN ×2 (00:45→20:31)
[2020-07-07] MEDS: Sodium Chloride 0.9% 1,000 ML IV SCH ×4 (00:47→20:30)
[2020-07-07 06:39] LABS: #Lymphocytes 0.7 thou/uL (1.20-3.40); #Monocytes 0.1 thou/uL (0.11-0.59); %Eosinophils 0.1 % (0.0-10.0); %Lymphocytes 17.5 % (21.0-51.0); %Monocytes 2.4 % (0.0-10.0); Hemoglobin 12.5 g/dL (12.0-16.0); Mean Corpuscular HGB CONC 32.5 g/dL (32.0-36.0); Mean Corpuscular Hemoglobin 28.6 pg (27.0-31.0); Mean Corpuscular Volume 88.1 fL (78.0-98.0); Mean Platelet Volume 8.2 fL (7.4-10.4); Platelet Count 211 thou/uL (130-400); Red Blood Cell (RBC) Count 4.37 mill/uL (4.20-5.40); White Blood Cell (WBC) Count 3.7 thou/uL (4.8-10.8)
[2020-07-07] MEDS: HumaLOG 300 UNITS/3 ML VIAL SC PRN ×4 (06:52→20:35)
[2020-07-07 07:00] LABS: Anion Gap 11 mmol/L (10-20); BUN (Urea Nitrogen) 20 mg/dL (9.8-20.1); Calc. Creatinine Clearance 74 mL/min (70-130); Calcium 7.2 mg/dL (7.8-10.44); Carbon Dioxide 18 mmol/L (22-29); Chloride 110 mmol/L (98-107); Magnesium 1.8 mg/dL (1.6-2.6); Potassium 4.7 mmol/L (3.5-5.1); Sodium 134 mmol/L (136-145)
[2020-07-07 07:01] LABS: Glucose 578 mg/dL (70-105)
[2020-07-07] MEDS ORDERED: Dexamethasone 4 mg/ml Vial SLOW IVP SCH (09:00)
[2020-07-07] MEDS ORDERED: Lantus 1000 UNITS/10 ML VIAL SC SCH (09:00)
[2020-07-07] MEDS: Famotidine 20 MG TAB PO SCH ×2 (09:24→20:31)
[2020-07-07] MEDS: Ascorbic Acid 500 mg Chewable Tablet PO SCH (09:25)
[2020-07-07] MEDS: Enoxaparin Sodium 40 MG/0.4 ML SYRINGE SC SCH (09:25)
[2020-07-07] MEDS: Zinc Sulfate 220 MG CAP PO SCH (09:25)
[2020-07-07] MEDS ORDERED: HumaLOG 300 UNITS/3 ML VIAL SC SCH ×2 (09:30)
[2020-07-07] MEDS: Cefdinir 300 MG CAP PO SCH (20:31)
[2020-07-07] MEDS: Acetaminophen 325 MG TAB PO PRN (20:32)
[2020-07-07] MEDS: Lantus 1000 UNITS/10 ML VIAL SC SCH (20:33)
[2020-07-07] MEDS ORDERED: Pregabalin 50 MG CAP PO SCH (23:00)
[2020-07-07] MEDS: hydrOXYzine 10 MG/5 ML UDCUP PO PRN (23:11)
[2020-07-08] MEDS: HumaLOG 300 UNITS/3 ML VIAL SC PRN ×4 (04:49→20:41)
[2020-07-08] MEDS: Sodium Chloride 0.9% 1,000 ML IV SCH ×2 (04:58→15:00)
[2020-07-08 05:55] LABS: #Basophils 0.1 thou/uL (0.0-0.2); #Lymphocytes 1.2 thou/uL (1.20-3.40); #Monocytes 0.6 thou/uL (0.11-0.59); #Neutrophils 6.1 thou/uL (1.40-6.50); %Basophils 0.8 % (0.0-1.0); %Eosinophils 0.1 % (0.0-10.0); %Lymphocytes 14.8 % (21.0-51.0); %Monocytes 7.2 % (0.0-10.0); %Neutrophils 77.1 % (42.0-75.0); Hemoglobin 11.3 g/dL (12.0-16.0); Mean Corpuscular HGB CONC 33.6 g/dL (32.0-36.0); Mean Corpuscular Volume 86.1 fL (78.0-98.0); Mean Platelet Volume 7.9 fL (7.4-10.4); Platelet Count 275 thou/uL (130-400); Red Blood Cell (RBC) Count 3.88 mill/uL (4.20-5.40)
[2020-07-08 05:59] LABS: Hemoglobin A1c 10.2 % (4.0-6.0)
[2020-07-08 06:13] LABS: Anion Gap 9 mmol/L (10-20); BUN (Urea Nitrogen) 17 mg/dL (9.8-20.1); Calc. Creatinine Clearance 97 mL/min (70-130); Calcium 6.9 mg/dL (7.8-10.44); Carbon Dioxide 18 mmol/L (22-29); Chloride 115 mmol/L (98-107); Glucose 292 mg/dL (70-105); Magnesium 1.8 mg/dL (1.6-2.6); Potassium 4.1 mmol/L (3.5-5.1); Sodium 138 mmol/L (136-145)
[2020-07-08] MEDS: Lantus 1000 UNITS/10 ML VIAL SC SCH ×2 (08:26→20:41)
[2020-07-08] MEDS: Cefdinir 300 MG CAP PO SCH ×2 (08:27→20:36)
[2020-07-08] MEDS: Famotidine 20 MG TAB PO SCH ×2 (08:27→20:36)
[2020-07-08] MEDS: Zinc Sulfate 220 MG CAP PO SCH (08:28)
[2020-07-08] MEDS: Pregabalin 50 MG CAP PO SCH (08:28)
[2020-07-08] MEDS: Dexamethasone 4 MG TAB PO SCH (08:28)
[2020-07-08] MEDS: Ascorbic Acid 500 mg Chewable Tablet PO SCH (08:28)
[2020-07-08] MEDS: guaiFENesin/DM ER PO PRN ×2 (08:29→20:37)
[2020-07-08] MEDS: Enoxaparin Sodium 40 MG/0.4 ML SYRINGE SC SCH (08:29)
[2020-07-08] MEDS: Acetaminophen 325 MG TAB PO PRN ×2 (08:29→20:37)
[2020-07-08] MEDS: hydrOXYzine 10 MG/5 ML UDCUP PO PRN (20:38)
[2020-07-09] MEDS: Sodium Chloride 0.9% 1,000 ML IV SCH (01:06)
[2020-07-09] MEDS: HumaLOG 300 UNITS/3 ML VIAL SC PRN (05:14)
[2020-07-09 06:28] LABS: #Lymphocytes 1.5 thou/uL (1.20-3.40); #Monocytes 0.6 thou/uL (0.11-0.59); #Neutrophils 6.2 thou/uL (1.40-6.50); %Basophils 0.1 % (0.0-1.0); %Eosinophils 0.1 % (0.0-10.0); %Neutrophils 74.7 % (42.0-75.0); Hemoglobin 12.2 g/dL (12.0-16.0); Mean Corpuscular HGB CONC 35.4 g/dL (32.0-36.0); Mean Corpuscular Hemoglobin 30.5 pg (27.0-31.0); Mean Corpuscular Volume 86.2 fL (78.0-98.0); Mean Platelet Volume 7.3 fL (7.4-10.4); Platelet Count 307 thou/uL (130-400); White Blood Cell (WBC) Count 8.2 thou/uL (4.8-10.8)
[2020-07-09 06:54] LABS: Anion Gap 11 mmol/L (10-20); BUN (Urea Nitrogen) 14 mg/dL (9.8-20.1); Calc. Creatinine Clearance 128 mL/min (70-130); Calcium 7.2 mg/dL (7.8-10.44); Carbon Dioxide 17 mmol/L (22-29); Chloride 116 mmol/L (98-107); Glucose 160 mg/dL (70-105); Magnesium 1.6 mg/dL (1.6-2.6); Potassium 3.6 mmol/L (3.5-5.1); Sodium 140 mmol/L (136-145)
[2020-07-09] MEDS: Cefdinir 300 MG CAP PO SCH (08:18)
[2020-07-09] MEDS: Famotidine 20 MG TAB PO SCH (08:18)
[2020-07-09] MEDS: Ascorbic Acid 500 mg Chewable Tablet PO SCH (08:18)
[2020-07-09] MEDS: Zinc Sulfate 220 MG CAP PO SCH (08:18)
[2020-07-09] MEDS: Dexamethasone 4 MG TAB PO SCH (08:19)
[2020-07-09] MEDS: Pregabalin 50 MG CAP PO SCH (08:19)
[2020-07-09] MEDS: Enoxaparin Sodium 40 MG/0.4 ML SYRINGE SC SCH (08:20)
[2020-07-09] MEDS: Lantus 1000 UNITS/10 ML VIAL SC SCH (08:20)
[2020-07-09] MEDS: Acetaminophen 325 MG TAB PO PRN (08:22)
[2020-07-09 12:36] VITALS: BP 131/67; TEMP 98.4
== END 2020-07-09 12:15 | disposition home or self-care (01) ==
LOC: ERS 18:41 → T4-B 20:56
PROVIDERS: ADMIT Internal Medicine; ATTEND Internal Medicine
DX: U07.1 COVID-19 (principal); J12.82 Pneumonia due to coronavirus disease 2019; I95.9 Hypotension, unspecified; E87.6 Hypokalemia; E11.65 Type 2 diabetes mellitus with hyperglycemia; T38.0X5A Adverse effect of glucocorticoids and synthetic analogues, initial encounter; N39.0 Urinary tract infection, site not specified; B96.20 Unspecified Escherichia coli [E. coli] as the cause of diseases classified elsewhere; E86.0 Dehydration; Z87.891 Personal history of nicotine dependence; Z79.2 Long term (current) use of antibiotics; Z79.4 Long term (current) use of insulin; Z79.899 Other long term (current) drug therapy
CPT/HCPCS: 36415; 36416; 71045; 80048; 80053; 82728; 83036; 83605; 83690; 83735; 84443; 84484; 85025; 85379; 86140; 93005; 94760; 96372; 96374; 96376; G0378; J1100; J1650; J1815; J8540; Q0162

== ENCOUNTER 2020-07-14 05:09 | Emergency (ER) | payer SELFPAY | END 2020-07-14 05:50 | disposition home or self-care (01) | LOC: ERS 05:09 | DX: F43.0 Acute stress reaction (principal); E11.9 Type 2 diabetes mellitus without complications; Z79.4 Long term (current) use of insulin; Z79.899 Other long term (current) drug therapy | CPT/HCPCS: 99283 ==

== ENCOUNTER 2020-11-26 10:08 | Emergency (ER) | payer SELFPAY ==
[2020-11-26] MEDS ORDERED: Acetaminophen 325 MG TAB ONE (10:48)
[2020-11-26 11:13] LABS: Actual Bicarbonate (HCO3v) 24 mEq/L (22-28); Analyzer IN Cardio ER; Base Excess 0.1 mEq/L (-2.0 to +3.0); Calcium, Ionized (venous) 1.06 mmol/L (1.16-1.32); Chloride (VBG) 101 mmol/L (98-106); Hemoglobin (Hb) 13.8 g/dL (11.7-16.0); Potassium (VBG) 3.98 mmol/L (3.70-5.30); Sodium 132.1 mmol/L (133-146); pH (venous) 7.45 (7.32-7.43)
[2020-11-26 11:23] LABS: #Eosinphils 0.1 thou/uL (0.0-0.7); #Lymphocytes 1.5 thou/uL (1.20-3.40); #Monocytes 0.6 thou/uL (0.11-0.59); %Basophils 0.2 % (0.0-1.0); %Eosinophils 1.2 % (0.0-10.0); %Lymphocytes 15.8 % (21.0-51.0); %Monocytes 6.5 % (0.0-10.0); %Neutrophils 76.2 % (42.0-75.0); Hemoglobin 13.1 g/dL (12.0-16.0); Mean Corpuscular HGB CONC 35.2 g/dL (32.0-36.0); Mean Corpuscular Hemoglobin 29.6 pg (27.0-31.0); Mean Corpuscular Volume 84.1 fL (78.0-98.0); Mean Platelet Volume 7.6 fL (7.4-10.4); Platelet Count 269 thou/uL (130-400); RBC Distribution Width 11.6 % (11.5-14.5); Red Blood Cell (RBC) Count 4.43 mill/uL (4.20-5.40); White Blood Cell (WBC) Count 9.2 thou/uL (4.8-10.8)
[2020-11-26 11:42] LABS: ALT (SGPT) 8 U/L (8-55); AST (SGOT) 10 U/L (5-34); Albumin 2.4 g/dL (3.5-5.0); Alkaline Phosphatase 72 U/L (40-110); Anion Gap 13 mmol/L (10-20); BUN (Urea Nitrogen) 12 mg/dL (9.8-20.1); Bilirubin, Total 0.3 mg/dL (0.2-1.2); Calc. Creatinine Clearance 0 mL/min (70-130); Calcium 8.6 mg/dL (7.8-10.44); Carbon Dioxide 24 mmol/L (22-29); Chloride 100 mmol/L (98-107); Globulin 3.3 g/dL (2.4-3.5); Glucose 510 mg/dL (70-105); Potassium 3.9 mmol/L (3.5-5.1); Protein, Total 5.7 g/dL (6.0-8.3); Sodium 133 mmol/L (136-145)
[2020-11-26 22:56] LABS: SARS-CoV-2 PCR by NAA Not Detected (NotDetected)
== END 2020-11-26 12:41 | disposition home or self-care (01) ==
LOC: ERS 10:08
DX: J30.9 Allergic rhinitis, unspecified (principal); E11.65 Type 2 diabetes mellitus with hyperglycemia; Z20.822 Contact with and (suspected) exposure to COVID-19
CPT/HCPCS: 36415; 36416; 71045; 80053; 82805; 85025; U0003; U0005

== ENCOUNTER 2021-02-02 19:33 | Emergency (ER) | payer SELFPAY ==
[2021-02-03 12:34] LABS: SARS-CoV-2 PCR by NAA Not Detected (NotDetected)
== END 2021-02-02 21:05 | disposition home or self-care (01) ==
LOC: ERS 19:33
DX: R05.9 Cough, unspecified (principal); R50.9 Fever, unspecified; R09.81 Nasal congestion; Z20.822 Contact with and (suspected) exposure to COVID-19; E11.9 Type 2 diabetes mellitus without complications
CPT/HCPCS: 99284; U0003; U0005

== ENCOUNTER 2021-02-15 19:51 | Inpatient (IN) | payer SELFPAY ==
[2021-02-15 21:35] LABS: #Monocytes 0.9 thou/uL (0.11-0.59); %Basophils 0.4 % (0.0-1.0); %Eosinophils 0.5 % (0.0-10.0); %Lymphocytes 11.3 % (21.0-51.0); %Monocytes 10.2 % (0.0-10.0); %Neutrophils 77.8 % (42.0-75.0); Hemoglobin 12.4 g/dL (12.0-16.0); Mean Corpuscular HGB CONC 34.5 g/dL (32.0-36.0); Mean Corpuscular Hemoglobin 29.7 pg (27.0-31.0); Mean Corpuscular Volume 86.2 fL (78.0-98.0); Mean Platelet Volume 6.6 fL (7.4-10.4); Platelet Count 297 thou/uL (130-400); RBC Distribution Width 11.9 % (11.5-14.5); Red Blood Cell (RBC) Count 4.16 mill/uL (4.20-5.40)
[2021-02-15 21:56] LABS: ALT (SGPT) 8 U/L (8-55); AST (SGOT) 12 U/L (5-34); Albumin 2.2 g/dL (3.5-5.0); Alkaline Phosphatase 76 U/L (40-110); Anion Gap 10 mmol/L (10-20); BUN (Urea Nitrogen) 12 mg/dL (9.8-20.1); Bilirubin, Total 0.2 mg/dL (0.2-1.2); Calc. Creatinine Clearance 0 mL/min (70-130); Calcium 8.6 mg/dL (7.8-10.44); Carbon Dioxide 24 mmol/L (22-29); Chloride 104 mmol/L (98-107); Globulin 3.8 g/dL (2.4-3.5); Glucose 353 mg/dL (70-105); Potassium 3.7 mmol/L (3.5-5.1); Sodium 134 mmol/L (136-145)
[2021-02-15] MEDS ORDERED: Ondansetron PF 4 MG/2 ML Vial ONE (21:56)
[2021-02-15] MEDS ORDERED: Acetaminophen 325 MG TAB ONE (21:56)
[2021-02-15] MEDS ORDERED: cefTRIAXone\\ROCEPHIN 2 GM VIAL ONE (23:38)
[2021-02-15] MEDS ORDERED: Azithromycin 500 MG VIAL ONE (23:38)
[2021-02-16 01:48] LABS: SARS-CoV-2 NAA Rapid Test DETECTED (NotDetected)
[2021-02-16] MEDS ORDERED: Dextrose 5% in Water 1,000 ML IV PRN (02:53)
[2021-02-16] MEDS ORDERED: HYDROcodone/Acetaminophen 5/325 mg Tablet PO PRN (02:53)
[2021-02-16] MEDS ORDERED: Ondansetron PF 4 MG/2 ML Vial IVP PRN (02:53)
[2021-02-16] MEDS ORDERED: Dextrose 50% Abboject 50 ML SYRINGE SLOW IVP PRN (02:53)
[2021-02-16] MEDS ORDERED: hydrALAZINE 20 MG/ML VIAL SLOW IVP PRN (02:59)
[2021-02-16] MEDS ORDERED: Melatonin 3 MG TAB PO PRN (03:06)
[2021-02-16] MEDS ORDERED: ALPRAZolam 0.25 MG TAB PO SCH (03:15)
[2021-02-16] MEDS ORDERED: Dexamethasone 10 MG/ML VIAL SLOW IVP SCH (03:15)
[2021-02-16] MEDS ORDERED: hydrOXYzine 25 MG TAB PO SCH (03:15)
[2021-02-16] MEDS ORDERED: Enoxaparin Sodium 40 MG/0.4 ML SYRINGE SC SCH (03:15)
[2021-02-16] MEDS ORDERED: Albuterol Sulfate 1.25 MG/3 ML NEB INH PRN (03:39)
[2021-02-16] MEDS ORDERED: Albuterol 200 PUFF (6.7GM INHALER) INH PRN (03:42)
[2021-02-16] MEDS ORDERED: ALPRAZolam 0.25 MG TAB ONE (03:44)
[2021-02-16] MEDS ORDERED: Enoxaparin Sodium 40 MG/0.4 ML SYRINGE ONE (03:44)
[2021-02-16] MEDS ORDERED: Dexamethasone 10 MG/ML VIAL ONE (03:46)
[2021-02-16 07:09] LABS: #Lymphocytes 0.9 thou/uL (1.20-3.40); #Monocytes 0.3 thou/uL (0.11-0.59); #Neutrophils 7.5 thou/uL (1.40-6.50); %Basophils 0.1 % (0.0-1.0); %Eosinophils 0.4 % (0.0-10.0); %Lymphocytes 9.9 % (21.0-51.0); %Monocytes 3.2 % (0.0-10.0); %Neutrophils 86.5 % (42.0-75.0); Hemoglobin 11.7 g/dL (12.0-16.0); Mean Corpuscular HGB CONC 34.3 g/dL (32.0-36.0); Mean Corpuscular Hemoglobin 30.2 pg (27.0-31.0); Mean Platelet Volume 6.8 fL (7.4-10.4); Platelet Count 285 thou/uL (130-400); Red Blood Cell (RBC) Count 3.86 mill/uL (4.20-5.40); White Blood Cell (WBC) Count 8.6 thou/uL (4.8-10.8)
[2021-02-16 07:30] LABS: Hemoglobin A1c 13.4 % (4.0-6.0)
[2021-02-16 07:38] LABS: ALT (SGPT) 8 U/L (8-55); AST (SGOT) 11 U/L (5-34); Alkaline Phosphatase 66 U/L (40-110); Anion Gap 11 mmol/L (10-20); BUN (Urea Nitrogen) 11 mg/dL (9.8-20.1); Bilirubin, Total Less than 0.2 mg/dL (0.2-1.2); Calc. Creatinine Clearance 0 mL/min (70-130); Calcium 8.3 mg/dL (7.8-10.44); Carbon Dioxide 18 mmol/L (22-29); Chloride 109 mmol/L (98-107); Globulin 3.5 g/dL (2.4-3.5); Glucose 396 mg/dL (70-105); Protein, Total 5.5 g/dL (6.0-8.3); Sodium 134 mmol/L (136-145)
[2021-02-16] MEDS ORDERED: REMDESIVIR 200 MG in Sodium Chloride 0.9% 250 ML 210 ML IV SCH (09:45)
[2021-02-16] MEDS: Ascorbic Acid 500 mg Chewable Tablet PO SCH (10:03)
[2021-02-16] MEDS: Cholecalciferol (Vitamin D3) 400 UNITS TAB PO SCH (10:04)
[2021-02-16] MEDS: Famotidine/PF 20 mg/2ml Vial SLOW IVP SCH ×2 (10:04→21:35)
[2021-02-16] MEDS: Zinc Sulfate 220 MG CAP PO SCH (10:05)
[2021-02-16] MEDS ORDERED: Acetaminophen 325 MG TAB ONE (11:07)
[2021-02-16] MEDS: Acetaminophen 325 MG TAB PO PRN ×2 (11:10→16:38)
[2021-02-16] MEDS: Sodium Chloride 0.9% 1,000 ML IV SCH (14:44)
[2021-02-16] MEDS: metFORMIN 500 MG TAB PO SCH (16:38)
[2021-02-16] MEDS: HumaLOG 300 UNITS/3 ML VIAL SC PRN (17:07)
[2021-02-16 17:38] VITALS: BMI 31.8
[2021-02-16] MEDS ORDERED: NPH, Human Insulin Isophane 300 UNIT/3 ML VIAL SC SCH (19:00)
[2021-02-16] MEDS ORDERED: Lantus 1000 UNITS/10 ML VIAL SC SCH (21:00)
[2021-02-16] MEDS: Enoxaparin Sodium 40 MG/0.4 ML SYRINGE SC SCH (21:34)
[2021-02-16] MEDS: cefTRIAXone\\ROCEPHIN 2 GM in Sodium Chloride 0.9% 100 ML IVPB SCH (21:58)
[2021-02-17] MEDS: Azithromycin 500 MG in Sodium Chloride 0.9% 250 ML 250 ML IVPB SCH ×2 (00:46→23:32)
[2021-02-17] MEDS: Sodium Chloride 0.9% 1,000 ML IV SCH ×2 (06:15→08:03)
[2021-02-17] MEDS: HumaLOG 300 UNITS/3 ML VIAL SC PRN ×4 (06:16→21:34)
[2021-02-17 06:56] LABS: #Eosinphils 0.1 thou/uL (0.0-0.7); #Lymphocytes 2.2 thou/uL (1.20-3.40); #Monocytes 1.1 thou/uL (0.11-0.59); #Neutrophils 7.2 thou/uL (1.40-6.50); %Basophils 0.4 % (0.0-1.0); %Eosinophils 0.5 % (0.0-10.0); %Monocytes 10.6 % (0.0-10.0); %Neutrophils 67.6 % (42.0-75.0); Hemoglobin 10.9 g/dL (12.0-16.0); Mean Corpuscular HGB CONC 34.8 g/dL (32.0-36.0); Mean Corpuscular Hemoglobin 30.5 pg (27.0-31.0); Mean Corpuscular Volume 87.6 fL (78.0-98.0); Mean Platelet Volume 6.8 fL (7.4-10.4); Platelet Count 327 thou/uL (130-400); RBC Distribution Width 11.9 % (11.5-14.5); Red Blood Cell (RBC) Count 3.59 mill/uL (4.20-5.40); White Blood Cell (WBC) Count 10.6 thou/uL (4.8-10.8)
[2021-02-17 07:22] LABS: ALT (SGPT) 9 U/L (8-55); AST (SGOT) 8 U/L (5-34); Albumin 1.8 g/dL (3.5-5.0); Alkaline Phosphatase 63 U/L (40-110); Anion Gap 11 mmol/L (10-20); BUN (Urea Nitrogen) 22 mg/dL (9.8-20.1); Bilirubin, Total Less than 0.2 mg/dL (0.2-1.2); CRP (Inflammatory) 5.78 mg/dL (= or < 0.5); Calc. Creatinine Clearance 77 mL/min (70-130); Calcium 8.2 mg/dL (7.8-10.44); Carbon Dioxide 21 mmol/L (22-29); Chloride 106 mmol/L (98-107); Globulin 3.4 g/dL (2.4-3.5); Glucose 427 mg/dL (70-105); Magnesium 1.9 mg/dL (1.6-2.6); Phosphorus 3.2 mg/dL (2.3-4.7); Potassium 3.7 mmol/L (3.5-5.1); Protein, Total 5.2 g/dL (6.0-8.3); Sodium 134 mmol/L (136-145)
[2021-02-17] MEDS: Dexamethasone 10 MG/ML VIAL SLOW IVP SCH (08:04)
[2021-02-17] MEDS: Cholecalciferol (Vitamin D3) 400 UNITS TAB PO SCH (08:04)
[2021-02-17] MEDS: Ascorbic Acid 500 mg Chewable Tablet PO SCH (08:04)
[2021-02-17] MEDS: metFORMIN 500 MG TAB PO SCH ×2 (08:04→16:05)
[2021-02-17] MEDS: Zinc Sulfate 220 MG CAP PO SCH (08:05)
[2021-02-17] MEDS: glipiZIDE 10 MG TAB PO SCH (08:05)
[2021-02-17] MEDS: Famotidine/PF 20 mg/2ml Vial SLOW IVP SCH ×2 (08:05→19:35)
[2021-02-17] MEDS: Lantus 1000 UNITS/10 ML VIAL SC SCH (08:06)
[2021-02-17] MEDS: Acetaminophen 325 MG TAB PO PRN (10:37)
[2021-02-17] MEDS: REMDESIVIR 100 MG in Sodium Chloride 0.9% 250 ML 230 ML IV SCH (10:37)
[2021-02-17] MEDS ORDERED: SUMAtriptan Succinate 50 MG TAB PO SCH (12:45)
[2021-02-17] MEDS ORDERED: Sodium Chloride 0.9% 1,000 ML IV SCH (12:45)
[2021-02-17] MEDS ORDERED: Metoclopramide HCl 10 MG/2 ML VIAL IVP SCH (12:45)
[2021-02-17] MEDS ORDERED: Dextromethorphan Polistirex 30 MG/5 ML (89 ML BOTTLE) PO PRN (13:21)
[2021-02-17] MEDS: Benzonatate 100 MG CAP PO SCH ×2 (14:15→19:35)
[2021-02-17] MEDS: Melatonin 3 MG TAB PO SCH (19:36)
[2021-02-17] MEDS: traZODone HCl 50 MG TAB PO SCH (19:36)
[2021-02-17] MEDS: Pregabalin 75 MG CAP PO SCH (19:36)
[2021-02-17] MEDS: Enoxaparin Sodium 40 MG/0.4 ML SYRINGE SC SCH (19:37)
[2021-02-17] MEDS ORDERED: Lantus 1000 UNITS/10 ML VIAL SC SCH (21:00)
[2021-02-17] MEDS: cefTRIAXone\\ROCEPHIN 2 GM in Sodium Chloride 0.9% 100 ML IVPB SCH (21:23)
[2021-02-17] MEDS: Guaifenesin DM 100-10/5 ML UDCUP PO PRN (21:31)
[2021-02-17] MEDS: hydrOXYzine 25 MG TAB PO PRN (21:32)
[2021-02-18 07:21] LABS: #Lymphocytes 1.9 thou/uL (1.20-3.40); #Monocytes 0.5 thou/uL (0.11-0.59); #Neutrophils 7.5 thou/uL (1.40-6.50); %Basophils 0.1 % (0.0-1.0); %Eosinophils 0.3 % (0.0-10.0); %Lymphocytes 18.8 % (21.0-51.0); %Monocytes 5.3 % (0.0-10.0); %Neutrophils 75.5 % (42.0-75.0); Hemoglobin 10.2 g/dL (12.0-16.0); Mean Corpuscular HGB CONC 34.8 g/dL (32.0-36.0); Mean Corpuscular Hemoglobin 30.3 pg (27.0-31.0); Mean Platelet Volume 6.8 fL (7.4-10.4); Platelet Count 309 thou/uL (130-400); RBC Distribution Width 12.1 % (11.5-14.5); Red Blood Cell (RBC) Count 3.39 mill/uL (4.20-5.40); White Blood Cell (WBC) Count 9.9 thou/uL (4.8-10.8)
[2021-02-18 07:41] LABS: ALT (SGPT) 8 U/L (8-55); AST (SGOT) 9 U/L (5-34); Albumin 1.7 g/dL (3.5-5.0); Alkaline Phosphatase 56 U/L (40-110); Anion Gap 10 mmol/L (10-20); BUN (Urea Nitrogen) 24 mg/dL (9.8-20.1); Bilirubin, Total Less than 0.2 mg/dL (0.2-1.2); Calc. Creatinine Clearance 96 mL/min (70-130); Calcium 7.8 mg/dL (7.8-10.44); Carbon Dioxide 20 mmol/L (22-29); Chloride 111 mmol/L (98-107); Globulin 3.1 g/dL (2.4-3.5); Glucose 178 mg/dL (70-105); Magnesium 1.8 mg/dL (1.6-2.6); Phosphorus 3.8 mg/dL (2.3-4.7); Potassium 3.7 mmol/L (3.5-5.1); Protein, Total 4.8 g/dL (6.0-8.3); Sodium 137 mmol/L (136-145)
[2021-02-18] MEDS: Cholecalciferol (Vitamin D3) 400 UNITS TAB PO SCH (10:10)
[2021-02-18] MEDS: Ascorbic Acid 500 mg Chewable Tablet PO SCH (10:11)
[2021-02-18] MEDS: glipiZIDE 10 MG TAB PO SCH (10:11)
[2021-02-18] MEDS: metFORMIN 500 MG TAB PO SCH ×2 (10:11→16:46)
[2021-02-18] MEDS: Zinc Sulfate 220 MG CAP PO SCH (10:11)
[2021-02-18] MEDS: Benzonatate 100 MG CAP PO SCH ×3 (10:11→20:47)
[2021-02-18] MEDS: Dexamethasone 10 MG/ML VIAL SLOW IVP SCH (10:12)
[2021-02-18] MEDS: Famotidine/PF 20 mg/2ml Vial SLOW IVP SCH ×2 (10:12→20:47)
[2021-02-18] MEDS: REMDESIVIR 100 MG in Sodium Chloride 0.9% 250 ML 230 ML IV SCH (10:36)
[2021-02-18] MEDS: Lantus 1000 UNITS/10 ML VIAL SC SCH ×2 (10:48→20:49)
[2021-02-18] MEDS: Guaifenesin DM 100-10/5 ML UDCUP PO PRN ×2 (10:48→20:50)
[2021-02-18] MEDS: HumaLOG 300 UNITS/3 ML VIAL SC PRN ×3 (12:49→20:51)
[2021-02-18] MEDS: hydrOXYzine 25 MG TAB PO PRN (20:47)
[2021-02-18] MEDS: Pregabalin 75 MG CAP PO SCH (20:47)
[2021-02-18] MEDS: traZODone HCl 50 MG TAB PO SCH (20:47)
[2021-02-18] MEDS: Melatonin 3 MG TAB PO SCH (20:48)
[2021-02-18] MEDS: Enoxaparin Sodium 40 MG/0.4 ML SYRINGE SC SCH (20:49)
[2021-02-18] MEDS: cefTRIAXone\\ROCEPHIN 2 GM in Sodium Chloride 0.9% 100 ML IVPB SCH (21:06)
[2021-02-19] MEDS: Azithromycin 500 MG in Sodium Chloride 0.9% 250 ML 250 ML IVPB SCH ×2 (00:13→23:47)
[2021-02-19 07:55] LABS: #Lymphocytes 2.5 thou/uL (1.20-3.40); #Monocytes 0.7 thou/uL (0.11-0.59); #Neutrophils 7.8 thou/uL (1.40-6.50); %Basophils 0.1 % (0.0-1.0); %Eosinophils 0.4 % (0.0-10.0); %Lymphocytes 22.5 % (21.0-51.0); %Monocytes 6.5 % (0.0-10.0); %Neutrophils 70.5 % (42.0-75.0); Hemoglobin 10.5 g/dL (12.0-16.0); Mean Corpuscular HGB CONC 33.8 g/dL (32.0-36.0); Mean Corpuscular Hemoglobin 29.9 pg (27.0-31.0); Mean Corpuscular Volume 88.3 fL (78.0-98.0); Mean Platelet Volume 6.6 fL (7.4-10.4); Platelet Count 328 thou/uL (130-400); RBC Distribution Width 12.2 % (11.5-14.5); Red Blood Cell (RBC) Count 3.52 mill/uL (4.20-5.40); White Blood Cell (WBC) Count 11.1 thou/uL (4.8-10.8)
[2021-02-19 08:18] LABS: ALT (SGPT) 8 U/L (8-55); AST (SGOT) 11 U/L (5-34); Albumin 1.8 g/dL (3.5-5.0); Alkaline Phosphatase 55 U/L (40-110); Anion Gap 9 mmol/L (10-20); BUN (Urea Nitrogen) 26 mg/dL (9.8-20.1); Bilirubin, Total Less than 0.2 mg/dL (0.2-1.2); Calc. Creatinine Clearance 86 mL/min (70-130); Calcium 8.1 mg/dL (7.8-10.44); Carbon Dioxide 23 mmol/L (22-29); Chloride 112 mmol/L (98-107); Glucose 82 mg/dL (70-105); Magnesium 1.9 mg/dL (1.6-2.6); Phosphorus 3.8 mg/dL (2.3-4.7); Potassium 3.5 mmol/L (3.5-5.1); Protein, Total 4.8 g/dL (6.0-8.3); Sodium 140 mmol/L (136-145)
[2021-02-19] MEDS ORDERED: Lisinopril 5 MG TAB PO SCH (09:00)
[2021-02-19] MEDS: Cholecalciferol (Vitamin D3) 400 UNITS TAB PO SCH (09:06)
[2021-02-19] MEDS: Benzonatate 100 MG CAP PO SCH ×3 (09:06→20:52)
[2021-02-19] MEDS: Dexamethasone 10 MG/ML VIAL SLOW IVP SCH (09:06)
[2021-02-19] MEDS: Ascorbic Acid 500 mg Chewable Tablet PO SCH (09:06)
[2021-02-19] MEDS: Zinc Sulfate 220 MG CAP PO SCH (09:06)
[2021-02-19] MEDS: Famotidine/PF 20 mg/2ml Vial SLOW IVP SCH ×2 (09:06→20:55)
[2021-02-19] MEDS: Lisinopril 10 MG TAB PO SCH (09:06)
[2021-02-19] MEDS: Lantus 1000 UNITS/10 ML VIAL SC SCH ×2 (09:10→20:56)
[2021-02-19] MEDS: glipiZIDE 10 MG TAB PO SCH (09:11)
[2021-02-19] MEDS: metFORMIN 500 MG TAB PO SCH ×2 (09:12→16:48)
[2021-02-19] MEDS: REMDESIVIR 100 MG in Sodium Chloride 0.9% 250 ML 230 ML IV SCH (09:47)
[2021-02-19] MEDS ORDERED: hydrOXYzine 25 MG TAB PO PRN (15:09)
[2021-02-19] MEDS: Loperamide HCl 1 MG/7.5 ML UDCUP PO PRN ×2 (16:47→20:54)
[2021-02-19] MEDS: HumaLOG 300 UNITS/3 ML VIAL SC PRN ×2 (17:34→20:57)
[2021-02-19] MEDS: traZODone HCl 50 MG TAB PO SCH (20:52)
[2021-02-19] MEDS: Pregabalin 75 MG CAP PO SCH (20:52)
[2021-02-19] MEDS: Melatonin 3 MG TAB PO SCH (20:53)
[2021-02-19] MEDS: Guaifenesin DM 100-10/5 ML UDCUP PO PRN (20:54)
[2021-02-19] MEDS: Enoxaparin Sodium 40 MG/0.4 ML SYRINGE SC SCH (20:55)
[2021-02-19] MEDS: cefTRIAXone\\ROCEPHIN 2 GM in Sodium Chloride 0.9% 100 ML IVPB SCH (22:15)
[2021-02-20] MEDS: glipiZIDE 10 MG TAB PO SCH (09:38)
[2021-02-20] MEDS: Lisinopril 10 MG TAB PO SCH (09:38)
[2021-02-20] MEDS: Ascorbic Acid 500 mg Chewable Tablet PO SCH (09:38)
[2021-02-20] MEDS: Cholecalciferol (Vitamin D3) 400 UNITS TAB PO SCH (09:38)
[2021-02-20] MEDS: Benzonatate 100 MG CAP PO SCH ×3 (09:38→20:21)
[2021-02-20] MEDS: metFORMIN 500 MG TAB PO SCH ×2 (09:38→18:13)
[2021-02-20] MEDS: REMDESIVIR 100 MG in Sodium Chloride 0.9% 250 ML 230 ML IV SCH (09:39)
[2021-02-20] MEDS: Zinc Sulfate 220 MG CAP PO SCH (09:39)
[2021-02-20] MEDS: Famotidine/PF 20 mg/2ml Vial SLOW IVP SCH ×2 (09:39→20:22)
[2021-02-20] MEDS: Lantus 1000 UNITS/10 ML VIAL SC SCH (09:51)
[2021-02-20] MEDS ORDERED: Dexamethasone 4 MG TAB PO SCH (10:45)
[2021-02-20] MEDS ORDERED: Meclizine HCl 12.5 MG TAB PO PRN (11:01)
[2021-02-20] MEDS ORDERED: Diphenoxylate HCl/Atropine Tablet PO PRN (11:02)
[2021-02-20] MEDS: Dexamethasone 10 MG/ML VIAL SLOW IVP SCH (11:26)
[2021-02-20] MEDS ORDERED: Amlodipine 5 MG TAB ONE (11:36)
[2021-02-20] MEDS ORDERED: Dexamethasone 4 MG TAB ONE (11:36)
[2021-02-20 11:37] LABS: ALT (SGPT) 14 U/L (8-55); AST (SGOT) 14 U/L (5-34); Albumin 2.1 g/dL (3.5-5.0); Alkaline Phosphatase 71 U/L (40-110); Anion Gap 11 mmol/L (10-20); BUN (Urea Nitrogen) 17 mg/dL (9.8-20.1); Bilirubin, Total Less than 0.2 mg/dL (0.2-1.2); Calc. Creatinine Clearance 104 mL/min (70-130); Calcium 8.5 mg/dL (7.8-10.44); Carbon Dioxide 23 mmol/L (22-29); Chloride 109 mmol/L (98-107); Globulin 3.7 g/dL (2.4-3.5); Glucose 88 mg/dL (70-105); Magnesium 1.8 mg/dL (1.6-2.6); Phosphorus 4.3 mg/dL (2.3-4.7); Potassium 3.2 mmol/L (3.5-5.1); Protein, Total 5.8 g/dL (6.0-8.3); Sodium 140 mmol/L (136-145)
[2021-02-20] MEDS: Amlodipine 5 MG TAB PO SCH (11:52)
[2021-02-20 11:59] LABS: #Eosinphils 0.1 thou/uL (0.0-0.7); #Lymphocytes 2.7 thou/uL (1.20-3.40); #Monocytes 0.8 thou/uL (0.11-0.59); #Neutrophils 6.5 thou/uL (1.40-6.50); %Basophils 0.4 % (0.0-1.0); %Eosinophils 0.8 % (0.0-10.0); %Monocytes 7.8 % (0.0-10.0); %Neutrophils 64.1 % (42.0-75.0); Hemoglobin 12.3 g/dL (12.0-16.0); Mean Corpuscular HGB CONC 32.7 g/dL (32.0-36.0); Mean Corpuscular Hemoglobin 28.6 pg (27.0-31.0); Mean Corpuscular Volume 87.4 fL (78.0-98.0); Mean Platelet Volume 6.3 fL (7.4-10.4); Platelet Count 332 thou/uL (130-400); RBC Distribution Width 12.3 % (11.5-14.5); Red Blood Cell (RBC) Count 4.32 mill/uL (4.20-5.40); White Blood Cell (WBC) Count 10.1 thou/uL (4.8-10.8)
[2021-02-20] MEDS: Loperamide HCl 1 MG/7.5 ML UDCUP PO SCH ×3 (12:43→20:22)
[2021-02-20] MEDS: Potassium Chloride 10 MEQ in Premix Bag 1 BAG IVPB SCH ×4 (12:48→17:59)
[2021-02-20] MEDS: traZODone HCl 50 MG TAB PO SCH (20:20)
[2021-02-20] MEDS: Pregabalin 75 MG CAP PO SCH (20:20)
[2021-02-20] MEDS: Melatonin 3 MG TAB PO SCH (20:20)
[2021-02-20] MEDS: HumaLOG 300 UNITS/3 ML VIAL SC PRN (20:22)
[2021-02-20] MEDS: Enoxaparin Sodium 40 MG/0.4 ML SYRINGE SC SCH (20:24)
[2021-02-20] MEDS ORDERED: Lantus 1000 UNITS/10 ML VIAL SC SCH (21:00)
[2021-02-21] MEDS: Loperamide HCl 1 MG/7.5 ML UDCUP PO SCH ×7 (02:02→21:48)
[2021-02-21] MEDS: HumaLOG 300 UNITS/3 ML VIAL SC PRN ×4 (04:16→21:26)
[2021-02-21 06:21] LABS: #Lymphocytes 1.1 thou/uL (1.20-3.40); #Monocytes 0.4 thou/uL (0.11-0.59); #Neutrophils 8.6 thou/uL (1.40-6.50); %Eosinophils 0.4 % (0.0-10.0); %Monocytes 3.5 % (0.0-10.0); %Neutrophils 85.1 % (42.0-75.0); Hemoglobin 12.6 g/dL (12.0-16.0); Mean Corpuscular HGB CONC 32.9 g/dL (32.0-36.0); Mean Corpuscular Hemoglobin 28.5 pg (27.0-31.0); Mean Corpuscular Volume 86.7 fL (78.0-98.0); Mean Platelet Volume 6.5 fL (7.4-10.4); Platelet Count 363 thou/uL (130-400); RBC Distribution Width 12.3 % (11.5-14.5); Red Blood Cell (RBC) Count 4.43 mill/uL (4.20-5.40); White Blood Cell (WBC) Count 10.1 thou/uL (4.8-10.8)
[2021-02-21 06:46] LABS: ALT (SGPT) 10 U/L (8-55); AST (SGOT) 10 U/L (5-34); Alkaline Phosphatase 70 U/L (40-110); Anion Gap 12 mmol/L (10-20); BUN (Urea Nitrogen) 23 mg/dL (9.8-20.1); Bilirubin, Total Less than 0.2 mg/dL (0.2-1.2); Calc. Creatinine Clearance 80 mL/min (70-130); Calcium 8.7 mg/dL (7.8-10.44); Carbon Dioxide 22 mmol/L (22-29); Chloride 107 mmol/L (98-107); Globulin 3.3 g/dL (2.4-3.5); Glucose 340 mg/dL (70-105); Magnesium 1.9 mg/dL (1.6-2.6); Phosphorus 4.3 mg/dL (2.3-4.7); Potassium 4.3 mmol/L (3.5-5.1); Protein, Total 5.3 g/dL (6.0-8.3); Sodium 137 mmol/L (136-145)
[2021-02-21] MEDS: Ascorbic Acid 500 mg Chewable Tablet PO SCH (08:33)
[2021-02-21] MEDS: Dexamethasone 4 MG TAB PO SCH (08:33)
[2021-02-21] MEDS: glipiZIDE 10 MG TAB PO SCH (08:34)
[2021-02-21] MEDS: Lisinopril 10 MG TAB PO SCH (08:34)
[2021-02-21] MEDS: Benzonatate 100 MG CAP PO SCH ×3 (08:34→21:25)
[2021-02-21] MEDS: Amlodipine 5 MG TAB PO SCH (08:34)
[2021-02-21] MEDS: Zinc Sulfate 220 MG CAP PO SCH (08:34)
[2021-02-21] MEDS: metFORMIN 500 MG TAB PO SCH ×2 (08:34→17:38)
[2021-02-21] MEDS: Cholecalciferol (Vitamin D3) 400 UNITS TAB PO SCH (08:34)
[2021-02-21] MEDS: Famotidine/PF 20 mg/2ml Vial SLOW IVP SCH ×2 (08:35→21:25)
[2021-02-21] MEDS: Lantus 1000 UNITS/10 ML VIAL SC SCH (08:47)
[2021-02-21] MEDS ORDERED: Lantus 1000 UNITS/10 ML VIAL SC SCH (21:00)
[2021-02-21] MEDS: Pregabalin 75 MG CAP PO SCH (21:25)
[2021-02-21] MEDS: traZODone HCl 50 MG TAB PO SCH (21:26)
[2021-02-21] MEDS: Melatonin 3 MG TAB PO SCH (21:26)
[2021-02-21] MEDS: Enoxaparin Sodium 40 MG/0.4 ML SYRINGE SC SCH (21:26)
[2021-02-22] MEDS: Loperamide HCl 1 MG/7.5 ML UDCUP PO SCH ×4 (01:00→13:54)
[2021-02-22] MEDS: HumaLOG 300 UNITS/3 ML VIAL SC PRN (06:03)
[2021-02-22 07:45] LABS: #Monocytes 0.7 thou/uL (0.11-0.59); #Neutrophils 13.3 thou/uL (1.40-6.50); %Basophils 0.2 % (0.0-1.0); %Eosinophils 0.3 % (0.0-10.0); %Lymphocytes 12.3 % (21.0-51.0); %Monocytes 4.5 % (0.0-10.0); %Neutrophils 82.8 % (42.0-75.0); Hemoglobin 12.5 g/dL (12.0-16.0); Mean Corpuscular HGB CONC 33.8 g/dL (32.0-36.0); Mean Corpuscular Hemoglobin 29.3 pg (27.0-31.0); Mean Corpuscular Volume 86.8 fL (78.0-98.0); Mean Platelet Volume 6.5 fL (7.4-10.4); Platelet Count 362 thou/uL (130-400); RBC Distribution Width 12.3 % (11.5-14.5); Red Blood Cell (RBC) Count 4.26 mill/uL (4.20-5.40)
[2021-02-22 08:29] VITALS: TEMP 98.1
[2021-02-22 08:37] LABS: ALT (SGPT) 10 U/L (8-55); AST (SGOT) 16 U/L (5-34); Albumin 1.8 g/dL (3.5-5.0); Alkaline Phosphatase 61 U/L (40-110); Anion Gap 12 mmol/L (10-20); BUN (Urea Nitrogen) 26 mg/dL (9.8-20.1); Bilirubin, Total Less than 0.2 mg/dL (0.2-1.2); Calc. Creatinine Clearance 97 mL/min (70-130); Calcium 8.3 mg/dL (7.8-10.44); Carbon Dioxide 21 mmol/L (22-29); Chloride 107 mmol/L (98-107); Globulin 3.4 g/dL (2.4-3.5); Glucose 172 mg/dL (70-105); Magnesium 1.8 mg/dL (1.6-2.6); Phosphorus 4.2 mg/dL (2.3-4.7); Potassium 4.2 mmol/L (3.5-5.1); Protein, Total 5.2 g/dL (6.0-8.3); Sodium 136 mmol/L (136-145)
[2021-02-22] MEDS: Dexamethasone 4 MG TAB PO SCH (09:28)
[2021-02-22] MEDS: metFORMIN 500 MG TAB PO SCH (09:28)
[2021-02-22] MEDS: Famotidine/PF 20 mg/2ml Vial SLOW IVP SCH (09:28)
[2021-02-22] MEDS: Zinc Sulfate 220 MG CAP PO SCH (09:31)
[2021-02-22] MEDS: Cholecalciferol (Vitamin D3) 400 UNITS TAB PO SCH (09:31)
[2021-02-22] MEDS: Benzonatate 100 MG CAP PO SCH ×2 (09:31→14:04)
[2021-02-22] MEDS: Ascorbic Acid 500 mg Chewable Tablet PO SCH (09:31)
[2021-02-22] MEDS: glipiZIDE 10 MG TAB PO SCH (09:31)
[2021-02-22] MEDS: Lisinopril 10 MG TAB PO SCH (09:32)
[2021-02-22 09:33] VITALS: BP 135/82
[2021-02-22] MEDS: Amlodipine 5 MG TAB PO SCH (09:33)
[2021-02-22] MEDS: Lantus 1000 UNITS/10 ML VIAL SC SCH (09:42)
== END 2021-02-22 15:49 | disposition home or self-care (01) | DRG 177 ==
LOC: ERS 19:51 → ERHOLD 23:53 → T4-B 02-16 15:43
PROVIDERS: ADMIT Internal Medicine; ATTEND Family Medicine
PROC: XW033E5 Introduction of Remdesivir Anti-infective into Peripheral Vein, Percutaneous Approach, New Technology Group 5 (ICD-10-PCS; principal; 2021-02-16)
PROC: 8E0ZXY6 Isolation (ICD-10-PCS; 2021-02-16)
DX: U07.1 COVID-19 (principal); J12.82 Pneumonia due to coronavirus disease 2019; J96.01 Acute respiratory failure with hypoxia; J15.9 Unspecified bacterial pneumonia; E87.1 Hypo-osmolality and hyponatremia; K52.1 Toxic gastroenteritis and colitis; E86.0 Dehydration; F41.9 Anxiety disorder, unspecified; F32.A Depression, unspecified; I10 Essential (primary) hypertension; E11.65 Type 2 diabetes mellitus with hyperglycemia; R51.9 Headache, unspecified; E87.6 Hypokalemia; Z79.899 Other long term (current) drug therapy; Z79.4 Long term (current) use of insulin; Z98.51 Tubal ligation status; Z90.89 Acquired absence of other organs
CPT/HCPCS: 36415; 36416; 71045; 80053; 83036; 83735; 84100; 84145; 85025; 86140; 96365; 96366; 96367; 96375; J0456; J0696; J1100; J1650; J1815; J2405; J2765; J3480; J3490; J7050; J8540; S0028; U0002

== ENCOUNTER 2021-04-06 21:48 | Emergency (ER) | payer SELFPAY | END 2021-04-06 22:30 | disposition left against medical advice (07) | LOC: ERS 21:48 | DX: Z53.21 Procedure and treatment not carried out due to patient leaving prior to being seen by health care provider (principal) ==

== ENCOUNTER 2022-08-31 10:38 | Inpatient (IN) | payer BC ==
[2022-08-31 11:08] LABS: #Basophils 0.1 thou/uL (0.0-0.2); #Eosinphils 0.2 thou/uL (0.0-0.7); #Monocytes 0.5 thou/uL (0.11-0.59); #Neutrophils 4.8 thou/uL (1.40-6.50); %Basophils 0.8 % (0.0-1.0); %Eosinophils 2.9 % (0.0-10.0); %Lymphocytes 21.8 % (21.0-51.0); %Monocytes 7.1 % (0.0-10.0); Hemoglobin 12.1 g/dL (12.0-16.0); Mean Corpuscular HGB CONC 32.7 g/dL (32.0-36.0); Mean Corpuscular Hemoglobin 27.6 pg (27.0-31.0); Mean Corpuscular Volume 84.5 fl (78.0-98.0); Mean Platelet Volume 10.1 fL (7.4-10.4); Platelet Count 274 10x3/uL (130-400); RBC Distribution Width 14.6 % (11.5-14.5); Red Blood Cell (RBC) Count 4.38 mill/uL (4.20-5.40); White Blood Cell (WBC) Count 7.2 10x3/uL (4.8-10.8)
[2022-08-31] MEDS ORDERED: Morphine 4 MG/ML VIAL ONE (11:30)
[2022-08-31] MEDS ORDERED: Aspirin Chewable 81 MG TAB ONE (11:30)
[2022-08-31 11:39] LABS: ALT (SGPT) 10 U/L (8-55); AST (SGOT) 14 U/L (5-34); Albumin 2.8 g/dL (3.5-5.0); Alkaline Phosphatase 84 U/L (40-110); Anion Gap 15 mmol/L (10-20); BUN (Urea Nitrogen) 50 mg/dL (9.8-20.1); Bilirubin, Total 0.2 mg/dL (0.2-1.2); Calc. Creatinine Clearance 0 mL/min (70-130); Calcium 8.2 mg/dL (7.8-10.44); Carbon Dioxide 20 mmol/L (22-29); Chloride 112 mmol/L (98-107); Estimated GFR 20; Globulin 3.2 g/dL (2.4-3.5); Glucose 247 mg/dL (70-105); Potassium 4.3 mmol/L (3.5-5.1); Sodium 143 mmol/L (136-145)
[2022-08-31] MEDS ORDERED: Guaifenesin DM 100-10/5 ML UDCUP PO PRN (14:04)
[2022-08-31] MEDS ORDERED: Senokot S 8.6-50 MG TAB PO PRN (14:04)
[2022-08-31] MEDS ORDERED: Acetaminophen 325 MG TAB PO PRN (14:04)
[2022-08-31] MEDS ORDERED: Furosemide 40 MG/4 ML VIAL SLOW IVP SCH (14:04)
[2022-08-31] MEDS ORDERED: Acetaminophen 650 MG Suppository PR PRN (14:04)
[2022-08-31] MEDS ORDERED: Ondansetron ODT 4 MG TAB PO PRN (14:04)
[2022-08-31] MEDS ORDERED: Furosemide 40 MG/4 ML VIAL ONE (14:44)
[2022-08-31 14:48] LABS: Troponin I 0.013 ng/mL (< 0.028)
[2022-08-31] MEDS ORDERED: HumaLOG 300 UNITS/3 ML VIAL SC PRN ×2 (15:29)
[2022-08-31] MEDS ORDERED: Dextrose 50% Abboject 50 ML SYRINGE SLOW IVP PRN (15:29)
[2022-08-31] MEDS ORDERED: Glucagon 1 MG/ML KIT IM PRN (15:29)
[2022-08-31] MEDS ORDERED: Dextrose 5% in Water 1,000 ML IV PRN (15:29)
[2022-08-31] MEDS: hydrOXYzine 25 MG TAB PO PRN (16:05)
[2022-08-31 16:38] VITALS: BMI 24.5
[2022-08-31 17:41] LABS: Troponin I 0.018 ng/mL (< 0.028)
[2022-08-31] MEDS: traMADol HCl 50 MG TAB PO PRN (21:40)
[2022-08-31] MEDS: Isosorbide Dinitrate 20 MG TAB PO SCH (21:42)
[2022-08-31] MEDS: Famotidine 20 MG TAB PO SCH (21:42)
[2022-08-31] MEDS: Heparin 5,000 UNITS/ML VIAL SC SCH (21:43)
[2022-08-31] MEDS: Ondansetron PF 4 MG/2 ML Vial IVP PRN (22:53)
[2022-09-01 04:53] LABS: #Basophils 0.1 thou/uL (0.0-0.2); #Eosinphils 0.2 thou/uL (0.0-0.7); #Monocytes 0.5 thou/uL (0.11-0.59); #Neutrophils 5.6 thou/uL (1.40-6.50); %Eosinophils 2.8 % (0.0-10.0); %Lymphocytes 16.4 % (21.0-51.0); %Monocytes 5.9 % (0.0-10.0); %Neutrophils 73.6 % (42.0-75.0); Hemoglobin 10.6 g/dL (12.0-16.0); Mean Corpuscular HGB CONC 31.1 g/dL (32.0-36.0); Mean Corpuscular Hemoglobin 27.6 pg (27.0-31.0); Mean Platelet Volume 10.1 fL (7.4-10.4); Platelet Count 254 10x3/uL (130-400); RBC Distribution Width 14.8 % (11.5-14.5); Red Blood Cell (RBC) Count 3.84 mill/uL (4.20-5.40); White Blood Cell (WBC) Count 7.6 10x3/uL (4.8-10.8)
[2022-09-01 04:54] LABS: Mean Corpuscular Volume 88.8 fl (78.0-98.0)
[2022-09-01] MEDS: Isosorbide Dinitrate 20 MG TAB PO SCH ×3 (05:14→21:44)
[2022-09-01] MEDS: Furosemide 40 MG/4 ML VIAL SLOW IVP SCH ×2 (05:14→09:56)
[2022-09-01 05:19] LABS: Anion Gap 11 mmol/L (10-20); BUN (Urea Nitrogen) 47 mg/dL (9.8-20.1); Calc. Creatinine Clearance 25 mL/min (70-130); Calcium 8.6 mg/dL (7.8-10.44); Carbon Dioxide 21 mmol/L (22-29); Chloride 112 mmol/L (98-107); Estimated GFR 22; Glucose 142 mg/dL (70-105); Potassium 4.4 mmol/L (3.5-5.1); Sodium 140 mmol/L (136-145)
[2022-09-01] MEDS: Heparin 5,000 UNITS/ML VIAL SC SCH ×3 (09:56→20:35)
[2022-09-01] MEDS: Ondansetron PF 4 MG/2 ML Vial IVP PRN (09:56)
[2022-09-01] MEDS: Escitalopram Oxalate 10 mg Tablet PO SCH (09:57)
[2022-09-01] MEDS: Empagliflozin 10 MG TAB PO SCH (09:57)
[2022-09-01] MEDS: Rosuvastatin 20 MG TAB PO SCH (09:57)
[2022-09-01] MEDS: Famotidine 20 MG TAB PO SCH (10:09)
[2022-09-01] MEDS: hydrOXYzine 25 MG TAB PO PRN (20:33)
[2022-09-01] MEDS ORDERED: Famotidine 20 MG TAB PO SCH (21:00)
[2022-09-02] MEDS: Furosemide 40 MG/4 ML VIAL SLOW IVP SCH ×2 (05:02→14:57)
[2022-09-02] MEDS: Isosorbide Dinitrate 20 MG TAB PO SCH ×3 (05:02→21:01)
[2022-09-02 05:23] LABS: #Basophils 0.1 thou/uL (0.0-0.2); #Eosinphils 0.2 thou/uL (0.0-0.7); #Monocytes 0.5 thou/uL (0.11-0.59); #Neutrophils 3.5 thou/uL (1.40-6.50); %Basophils 1.1 % (0.0-1.0); %Eosinophils 3.4 % (0.0-10.0); %Lymphocytes 25.8 % (21.0-51.0); %Monocytes 8.5 % (0.0-10.0); Hemoglobin 9.2 g/dL (12.0-16.0); Mean Corpuscular HGB CONC 31.1 g/dL (32.0-36.0); Mean Corpuscular Hemoglobin 27.5 pg (27.0-31.0); Mean Corpuscular Volume 88.4 fl (78.0-98.0); Mean Platelet Volume 10.2 fL (7.4-10.4); Platelet Count 227 10x3/uL (130-400); RBC Distribution Width 14.8 % (11.5-14.5); Red Blood Cell (RBC) Count 3.35 mill/uL (4.20-5.40); White Blood Cell (WBC) Count 5.7 10x3/uL (4.8-10.8)
[2022-09-02 05:47] LABS: Anion Gap 13 mmol/L (10-20); BUN (Urea Nitrogen) 49 mg/dL (9.8-20.1); Calc. Creatinine Clearance 22 mL/min (70-130); Calcium 8.2 mg/dL (7.8-10.44); Carbon Dioxide 16 mmol/L (22-29); Chloride 112 mmol/L (98-107); Estimated GFR 19; Glucose 131 mg/dL (70-105); Potassium 4.4 mmol/L (3.5-5.1); Sodium 137 mmol/L (136-145)
[2022-09-02] MEDS: Empagliflozin 10 MG TAB PO SCH (09:53)
[2022-09-02] MEDS: Heparin 5,000 UNITS/ML VIAL SC SCH ×3 (09:53→20:56)
[2022-09-02] MEDS: Rosuvastatin 20 MG TAB PO SCH (09:53)
[2022-09-02] MEDS: Escitalopram Oxalate 10 mg Tablet PO SCH (09:53)
[2022-09-02] MEDS: traMADol HCl 50 MG TAB PO PRN (15:03)
[2022-09-02] MEDS: hydrOXYzine 25 MG TAB PO PRN (20:55)
[2022-09-02] MEDS: Famotidine 20 MG TAB PO SCH (20:55)
[2022-09-03 04:44] LABS: Red Blood Cell (RBC) Count 3.34 mill/uL (4.20-5.40); White Blood Cell (WBC) Count 5.2 10x3/uL (4.8-10.8)
[2022-09-03 04:45] LABS: #Basophils 0.1 thou/uL (0.0-0.2); #Eosinphils 0.2 thou/uL (0.0-0.7); #Monocytes 0.5 thou/uL (0.11-0.59); #Neutrophils 2.9 thou/uL (1.40-6.50); %Eosinophils 3.7 % (0.0-10.0); %Lymphocytes 28.3 % (21.0-51.0); %Monocytes 9.5 % (0.0-10.0); %Neutrophils 57.1 % (42.0-75.0); Hemoglobin 9.4 g/dL (12.0-16.0); Mean Corpuscular HGB CONC 31.8 g/dL (32.0-36.0); Mean Corpuscular Hemoglobin 28.1 pg (27.0-31.0); Mean Corpuscular Volume 88.6 fl (78.0-98.0); Mean Platelet Volume 10.4 fL (7.4-10.4); Platelet Count 224 10x3/uL (130-400); RBC Distribution Width 14.8 % (11.5-14.5)
[2022-09-03] MEDS: Furosemide 40 MG/4 ML VIAL SLOW IVP SCH ×2 (05:06→09:42)
[2022-09-03] MEDS: Isosorbide Dinitrate 20 MG TAB PO SCH ×3 (05:07→20:05)
[2022-09-03 05:37] LABS: Anion Gap 10 mmol/L (10-20); BUN (Urea Nitrogen) 51 mg/dL (9.8-20.1); Calc. Creatinine Clearance 20 mL/min (70-130); Carbon Dioxide 21 mmol/L (22-29); Chloride 111 mmol/L (98-107); Potassium 4.3 mmol/L (3.5-5.1); Sodium 138 mmol/L (136-145)
[2022-09-03 05:38] LABS: Estimated GFR 17; Glucose 112 mg/dL (70-105)
[2022-09-03] MEDS: Empagliflozin 10 MG TAB PO SCH (09:41)
[2022-09-03] MEDS: Escitalopram Oxalate 10 mg Tablet PO SCH (09:41)
[2022-09-03] MEDS: Rosuvastatin 20 MG TAB PO SCH (09:41)
[2022-09-03] MEDS: Heparin 5,000 UNITS/ML VIAL SC SCH ×3 (09:42→20:15)
[2022-09-03] MEDS: traMADol HCl 50 MG TAB PO PRN (09:52)
[2022-09-03] MEDS: Famotidine 20 MG TAB PO SCH (20:02)
[2022-09-03] MEDS: hydrOXYzine 25 MG TAB PO PRN (20:03)
[2022-09-04 04:14] LABS: #Basophils 0.1 thou/uL (0.0-0.2); #Eosinphils 0.2 thou/uL (0.0-0.7); #Monocytes 0.6 thou/uL (0.11-0.59); #Neutrophils 3.6 thou/uL (1.40-6.50); %Eosinophils 3.2 % (0.0-10.0); %Lymphocytes 26.1 % (21.0-51.0); %Monocytes 9.3 % (0.0-10.0); %Neutrophils 60.1 % (42.0-75.0); Hemoglobin 10.2 g/dL (12.0-16.0); Mean Corpuscular HGB CONC 32.1 g/dL (32.0-36.0); Mean Corpuscular Hemoglobin 27.5 pg (27.0-31.0); Mean Platelet Volume 10.5 fL (7.4-10.4); Platelet Count 248 10x3/uL (130-400); RBC Distribution Width 14.7 % (11.5-14.5); Red Blood Cell (RBC) Count 3.71 mill/uL (4.20-5.40); White Blood Cell (WBC) Count 5.9 10x3/uL (4.8-10.8)
[2022-09-04 04:40] LABS: Anion Gap 14 mmol/L (10-20); BUN (Urea Nitrogen) 49 mg/dL (9.8-20.1); Calc. Creatinine Clearance 21 mL/min (70-130); Calcium 8.2 mg/dL (7.8-10.44); Carbon Dioxide 19 mmol/L (22-29); Chloride 110 mmol/L (98-107); Estimated GFR 18; Glucose 139 mg/dL (70-105); Potassium 4.2 mmol/L (3.5-5.1); Sodium 139 mmol/L (136-145)
[2022-09-04 05:31] LABS: Mean Corpuscular Volume 85.7 fl (78.0-98.0)
[2022-09-04] MEDS: Isosorbide Dinitrate 20 MG TAB PO SCH ×3 (05:31→20:42)
[2022-09-04] MEDS: Empagliflozin 10 MG TAB PO SCH (10:16)
[2022-09-04] MEDS: Escitalopram Oxalate 10 mg Tablet PO SCH (10:17)
[2022-09-04] MEDS: Rosuvastatin 20 MG TAB PO SCH (10:17)
[2022-09-04] MEDS: Heparin 5,000 UNITS/ML VIAL SC SCH ×3 (10:18→20:42)
[2022-09-04] MEDS: Furosemide 40 MG/4 ML VIAL SLOW IVP SCH (10:18)
[2022-09-04] MEDS: traMADol HCl 50 MG TAB PO PRN (10:19)
[2022-09-04] MEDS: hydrOXYzine 25 MG TAB PO PRN (20:41)
[2022-09-04] MEDS ORDERED: Furosemide 20 MG TAB PO SCH (21:00)
[2022-09-05] MEDS: Isosorbide Dinitrate 20 MG TAB PO SCH ×2 (05:12→16:35)
[2022-09-05 05:19] LABS: #Basophils 0.1 thou/uL (0.0-0.2); #Eosinphils 0.2 thou/uL (0.0-0.7); #Monocytes 0.5 thou/uL (0.11-0.59); #Neutrophils 3.7 thou/uL (1.40-6.50); %Eosinophils 3.8 % (0.0-10.0); %Lymphocytes 23.7 % (21.0-51.0); %Monocytes 8.8 % (0.0-10.0); %Neutrophils 62.4 % (42.0-75.0); Hemoglobin 9.6 g/dL (12.0-16.0); Mean Corpuscular HGB CONC 32.1 g/dL (32.0-36.0); Mean Corpuscular Hemoglobin 27.7 pg (27.0-31.0); Mean Corpuscular Volume 86.4 fl (78.0-98.0); Mean Platelet Volume 10.5 fL (7.4-10.4); Platelet Count 251 10x3/uL (130-400); RBC Distribution Width 14.7 % (11.5-14.5); Red Blood Cell (RBC) Count 3.46 mill/uL (4.20-5.40)
[2022-09-05 06:03] LABS: Anion Gap 13 mmol/L (10-20); BUN (Urea Nitrogen) 48 mg/dL (9.8-20.1); Calc. Creatinine Clearance 21 mL/min (70-130); Calcium 8.3 mg/dL (7.8-10.44); Carbon Dioxide 20 mmol/L (22-29); Chloride 110 mmol/L (98-107); Estimated GFR 18; Glucose 116 mg/dL (70-105); Sodium 139 mmol/L (136-145)
[2022-09-05] MEDS ORDERED: Furosemide 40 MG TAB PO SCH (07:30)
[2022-09-05] MEDS: Heparin 5,000 UNITS/ML VIAL SC SCH ×2 (10:58→16:35)
[2022-09-05] MEDS: Rosuvastatin 20 MG TAB PO SCH (11:05)
[2022-09-05] MEDS: Escitalopram Oxalate 10 mg Tablet PO SCH (11:05)
[2022-09-05] MEDS: Empagliflozin 10 MG TAB PO SCH (11:06)
[2022-09-05] MEDS: traMADol HCl 50 MG TAB PO PRN (11:08)
[2022-09-05 15:54] VITALS: BP 149/85; TEMP 99.1
[2022-09-05] MEDS ORDERED: Sodium Bicarbonate Tab 325 MG TAB PO SCH (21:00)
== END 2022-09-05 17:45 | disposition home or self-care (01) | DRG 291 ==
LOC: ERS 10:38 → 2NO 13:59
PROVIDERS: ADMIT Emergency Medicine; ATTEND Family Medicine
DX: I13.0 Hypertensive heart and chronic kidney disease with heart failure and stage 1 through stage 4 chronic kidney disease, or unspecified chronic kidney disease (principal); I50.43 Acute on chronic combined systolic (congestive) and diastolic (congestive) heart failure; J96.21 Acute and chronic respiratory failure with hypoxia; N18.4 Chronic kidney disease, stage 4 (severe); N17.9 Acute kidney failure, unspecified; E87.20 Acidosis, unspecified; E11.22 Type 2 diabetes mellitus with diabetic chronic kidney disease; E78.5 Hyperlipidemia, unspecified; E11.21 Type 2 diabetes mellitus with diabetic nephropathy; I42.0 Dilated cardiomyopathy; D63.1 Anemia in chronic kidney disease; F39 Unspecified mood [affective] disorder; Z98.51 Tubal ligation status; Z98.890 Other specified postprocedural states; Z79.899 Other long term (current) drug therapy; Z99.81 Dependence on supplemental oxygen
CPT/HCPCS: 36415; 36416; 71045; 80048; 80053; 83880; 84484; 85025; 93005; 93798; 96374; 96375; 97139; J1644; J1815; J1940; J2270; J2405; Q0162